=== PATIENT | female | born 1980 | race Hispanic/Latino ===

== ENCOUNTER 2018-12-23 15:54 | Inpatient (IN) | payer OTHER ==
[~2018-12-23] VITALS: Ht 167.6 cm; Wt 114.8 kg
[2018-12-23 18:02] LABS: PREGNANCY TEST, URINE NEGATIVE (NEGATIVE)
[2018-12-23 18:09] LABS: BASOPHILS # (AUTO) 0.1 (0.0-0.1); BASOPHILS % 0.6 % (0.0-1.0); EOSINOPHILS # (AUTO) 0.2 (0.0-0.4); EOSINOPHILS % 2.3 % (0.0-6.0); HEMATOCRIT 45.7 % (34.2-44.1); HEMOGLOBIN 15.3 g/dL (12.0-16.0); LYMPHOCYTES # (AUTO) 1.8 (1.0-3.2); LYMPHOCYTES % 19.8 % (18.0-39.1); MEAN CORPUSCULAR HGB CONC 33.5 g/dL (31-35); MEAN CORPUSCULAR VOLUME 92.5 fL (81-99); MONOCYTES # (AUTO) 0.9 (0.2-0.8); MONOCYTES % 9.5 % (4.4-11.3); NEUTROPHILS # (AUTO) 6.3 (2.1-6.9); NEUTROPHILS % 67.5 % (38.7-80.0); PLATELET COUNT 164 x10e3/uL (140-360); RED BLOOD COUNT 4.94 x10e6/uL (3.6-5.1); RED CELL DISTRIBUTION WIDTH 13.5 % (11.7-14.4)
[2018-12-23 18:11] LABS: BILIRUBIN,URINE 3+ (NEGATIVE); CLARITY,URINE CLOUDY (CLEAR); COLOR,URINE ORANGE (YELLOW); KETONES,URINE 1+ (NEGATIVE); LEUKOCYTE ESTERASE ,URINE TRACE (NEGATIVE); NITRITE,URINE POSITIVE (NEGATIVE); PROTEIN,URINE DIPSTICK 2+ (NEGATIVE); URINE UROBILINOGEN 1 mg/dL (0.2 - 1)
[2018-12-23 18:13] LABS: BACTERIA,URINE MANY /HPF
[2018-12-23 18:14] LABS: ALANINE AMINOTRANSFERASE 594 IU/L (0-55); ALBUMIN 2.7 g/dL (3.5-5.0); ALBUMIN/GLOBULIN RATIO 0.6 (0.8-2.0); ALKALINE PHOSPHATASE 659 IU/L (40-150); ANION GAP 12.8 mmol/L (8-16); BLOOD UREA NITROGEN 20 mg/dL (7-26); BUN/CREATININE RATIO 25 (6-25); CALCIUM 9.3 mg/dL (8.4-10.2); CARBON DIOXIDE 25 mmol/L (22-29); CHLORIDE 95 mmol/L (98-107); CREATININE, SERUM 0.81 mg/dL (0.57-1.11); EPITHELIAL CELLS,URINE MANY /LPF; EST GLOMERULAR FILTRATION RATE > 60 ML/MIN (60-); GLUCOSE 206 mg/dL (74-118); SODIUM 130 mmol/L (136-145)
[2018-12-23 18:15] LABS: AMYLASE 41 U/L (25-125); LIPASE 37 U/L (8-78)
[2018-12-23 18:19] LABS: POTASSIUM 2.8 mmol/L (3.5-5.1)
--- NOTE | 2018-12-23 19:00 | NUR ---
REPORT GIVEN TO GEN BEAN AQUACULTURE PROGRAM DIRECTOR NURSE.
[2018-12-23] MEDS ORDERED: SODIUM CHLORIDE 0.9% 1000ML 1,000 ML IV SCH (19:15)
[2018-12-23] MEDS ORDERED: POTASSIUM CHLORIDE 20MEQ/15ML UDC PO ONE (19:15)
[2018-12-23 19:47] LABS: INR 0.83; PROTHROMBIN TIME 11.9 seconds (11.9-14.5)
[2018-12-23 19:52] LABS: PARTIAL THROMBOPLASTIN TIME 28.8 seconds (23.8-35.5)
--- NOTE | 2018-12-23 21:18 | Diagnostic Imaging Report ---
EXAM: CT Abdomen and Pelvis WITH contrast INDICATION: Epigastric pain COMPARISON: None. TECHNIQUE: Abdomen and pelvis were scanned utilizing a multidetector helical scanner from the lung base to the pubic symphysis after administration of IV contrast. Coronal and sagittal reformations were obtained. Routine protocol was performed. Scan was performed when during portal venous phase. IV CONTRAST: 150 mL of Omnipaque 300 ORAL CONTRAST: Water RADIATION DOSE: Total DLP: 915 mGy*cm Estimated effective dose: (DLP x 0.015 x size factor) mSv COMPLICATIONS: None FINDINGS: LINES and TUBES: None. LOWER THORAX: Unremarkable HEPATOBILIARY: No focal hepatic lesions. No biliary ductal dilation. GALLBLADDER: Gallstones versus sludge. No wall thickening. SPLEEN: No splenomegaly. PANCREAS: No focal masses or ductal dilatation. ADRENALS: No adrenal nodules KIDNEYS/URETERS: Kidneys enhance symmetrically. No hydronephrosis. No cystic or solid mass lesions. No stones. GI TRACT: No abnormal distention, wall thickening, or evidence of bowel obstruction. Appendix is normal. PELVIC ORGANS/BLADDER: Unremarkable. LYMPH NODES: No lymphadenopathy. VESSELS: Unremarkable. PERITONEUM / RETROPERITONEUM: No free air or fluid. BONES: Unremarkable. SOFT TISSUES: Unremarkable. IMPRESSION: 1. Probable gallbladder stones versus sludge 2. No acute CT finding. Signed by: Dr. Andrew Bear M.D. on 12/23/2018 9:15 PM
[2018-12-23 21:45] VITALS: BP 136/67
[2018-12-23] MEDS ORDERED: HYDROMORPHONE 1MG/1ML INJ IV PRN (21:45)
[2018-12-23] MEDS ORDERED: IOPAMIDOL 370 MG/ML 200 ML INFUS..BTL INJ ONE (21:58)
[2018-12-23] MEDS ORDERED: SODIUM CHLORIDE 0.9% 50ML 50 ML ONE (21:58)
--- OUTSIDE RECORDS SUMMARY | 2018-12-23 22:17 | XMS REPORT ---
Author Author [facility] Address Unknown Phone Unavailable Care Team Providers Care Claims Attorney Name Role Phone Francis BANUELOS Unavailable Unavailable Problems This patient has no known problems. Allergies, Adverse Reactions, Alerts This patient has no known allergies or adverse reactions. Medications This patient has no known medications. Results Test Description Test Time Test Comments Text Results Atomic Results Result Comments CT ABDOMEN/PELVIS W 2018-12-23 20:57:00 [facility] [address] [address] Patient Name: GRIFFIN FIELDS MR #: [id number] : 1980 Age/Sex: 38/F Req #: [id number] Adm Physician: Ordered by: KIMBERLI ANDINO STRAP BUCKLER MACHINE Report #: [id number] Location: ER Room/Bed: Procedure: [id number] CT/CT ABDOMEN/PELVIS W Exam Date: 12/23/18 Exam Time: 1924 REPORT STATUS: Signed EXAM: CT Abdomen and Pelvis WITH contrast INDICATI ON: Epigastric pain COMPARISON: None. TECHNIQUE: Abdomen and pelvis were scanned utilizing a multidetector helical scanner from the lung base to the pubic symphysis after administration of IV contrast. Coronal and sagittal reformations were obtained. Routine protocol was performed. Scan was performed when during portal venous phase. IV CONTRAST: 150 mL of Omnipaque 300 ORAL CONTRAST: Water RADIATION DOSE: Total DLP: 915 mGy*cm Estimated effective dose: (DLP x 0.015 x size factor) mSv COMPLICATIONS: None FINDINGS: LINES and TUBES: None. LOWER THORAX: Unremarkable HEPATOBILIARY: No focal hepatic lesions. No biliary ductal dilation. GALLBLADDER: Gallstones versus sludge. No wall thickening. SPLEEN: No splenomegaly. PANCREAS: No focal masses or ductal dilatation. ADRENALS: No adrenal nodules KIDNEYS/URETERS: Kidneys enhance symmetrically. No hydronephrosis. No cystic or solid mass lesions. No stones. GI TRACT: No abnormal distention, wall thickening, or evidence of bowel obstruction. Appendix is normal. PELVIC ORGANS/BLADDER: Unremarkable. LYMPH NODES: No lymphadenopathy. VESSELS: Unremarkable. PERITONEUM / RETROPERITONEUM: No free air or fluid. BONES: Unremarkable. SOFT TISSUES: Unremarkable. IMPRESSION: 1. Probable gallbladder stones versus sludge 2. No acute CT finding. Signed by: Dr. Tino Carranza M.D. on 12/23/2018 9:15 PM Dictated By: TINO CARRANZA MD 14 Transcribed By: EMELY on 12/23/182114 COPY TO: KIMBERLI ANDINO NP
[2018-12-23] MEDS: PIPER-TAZ 3.375 GM 50 ML IV SCH (22:36)
[2018-12-23] MEDS ORDERED: ARMOUR THYROID120 MG PO (22:59)
[2018-12-24] VITALS (7 sets, daily range): BP systolic 132–166; BP diastolic 61–79
--- NOTE | 2018-12-24 | NUR ---
RECEIVED PATIENT FROM THE ER, COMPLAIN OF SOME DISCOMFORT, ASSESSMENT DONE, CALL LIGHT IN REACH. WILL CONTINUE TO MONITOR.
[2018-12-24] MEDS: SODIUM CHLORIDE 0.9% 1000ML 1,000 ML IV SCH ×3 (00:16→15:01)
[2018-12-24] MEDS: METRONIDAZOLE 500MG/NS 100ML 100 ML IV SCH ×4 (00:16→18:03)
[2018-12-24 05:03] LABS: BASOPHILS # (AUTO) 0.1 (0.0-0.1); BASOPHILS % 0.7 % (0.0-1.0); EOSINOPHILS # (AUTO) 0.3 (0.0-0.4); EOSINOPHILS % 3.6 % (0.0-6.0); HEMATOCRIT 40.7 % (34.2-44.1); HEMOGLOBIN 13.8 g/dL (12.0-16.0); LYMPHOCYTES # (AUTO) 1.5 (1.0-3.2); MEAN CORPUSCULAR HGB CONC 33.9 g/dL (31-35); MEAN CORPUSCULAR VOLUME 91.5 fL (81-99); MONOCYTES # (AUTO) 0.7 (0.2-0.8); MONOCYTES % 9.6 % (4.4-11.3); NEUTROPHILS # (AUTO) 4.8 (2.1-6.9); NEUTROPHILS % 65.7 % (38.7-80.0); PLATELET COUNT 136 x10e3/uL (140-360); RED BLOOD COUNT 4.45 x10e6/uL (3.6-5.1); RED CELL DISTRIBUTION WIDTH 13.4 % (11.7-14.4)
[2018-12-24 05:32] LABS: ALANINE AMINOTRANSFERASE 458 IU/L (0-55); ALBUMIN 2.1 g/dL (3.5-5.0); ALBUMIN/GLOBULIN RATIO 0.6 (0.8-2.0); ALKALINE PHOSPHATASE 571 IU/L (40-150); AMYLASE 32 U/L (25-125); BLOOD UREA NITROGEN 12 mg/dL (7-26); BUN/CREATININE RATIO 17 (6-25); CALCIUM 8.1 mg/dL (8.4-10.2); CARBON DIOXIDE 23 mmol/L (22-29); CHLORIDE 101 mmol/L (98-107); CREATININE, SERUM 0.69 mg/dL (0.57-1.11); EST GLOMERULAR FILTRATION RATE > 60 ML/MIN (60-); GLUCOSE 139 mg/dL (74-118); LIPASE 25 U/L (8-78); SODIUM 132 mmol/L (136-145)
[2018-12-24] MEDS: PIPER-TAZ 3.375 GM 50 ML IV SCH ×3 (06:18→22:00)
--- NOTE | 2018-12-24 07:14 | NUR ---
REPORT GIVEN TO AM NURSE, ROUNDS DONE. IV INFUSING, NO DISTRESS NOTED.
--- NOTE | 2018-12-24 07:16 | NUR ---
PATIENT ASSISTED TO THE RESTROOM AND BACK TO BED. IV FLUID INFUSING ORDERED. PSORIASIS ALL OVER THE BODY, ESCHAR TO RIGHT GREAT TOE, SOME EDEMA TO LEFT FOOT. DENIED PAIN AT THIS TIME. BED IN LOWER POSITION, CALL LIGHT AT REACH.
--- NOTE | 2018-12-24 10:02 | NUR ---
PATIENT OFF UNIT TO RADIOLOGY
--- NOTE | 2018-12-24 11:05 | NUR ---
PATIENT BACK TO UNIT FROM RADIOLOGY.
--- NOTE | 2018-12-24 11:27 | NUR ---
SOCIAL WORK INITIAL ASSESSMENT Musculoskeletal Physician to bedside to discuss plan of care with patient/family. CM/SW role and care transitions discussed. Anticipated discharge plan discussed along with duration of care. CM/SW discussed patients right to make decisions in care. CM/SW work hours given. Patient lives: WITH FAMILY IN HOME Admit/Transfer: VIA ED DUE TO ABNORMAL LABS FROM PCP POA/Emergency contact: WENDI [phone] Current/Previous Home Health: NONE PCP/Follow-up Care: LEO Current/Previous DME: NONE Other Services: NONE Employment Status: [employer] Areas of Concerns: NONE Referral Needs: NONE Education Needs: NONE IMM/ROWLEY given and signed (if applicable): NONE Goal for discharge: RETURN HOME INDEPENDENTLY CM/SW left business card at the bedside with contact information. Name and number was also written on the patients whiteboard. Patient verbalized understanding of discussion. CM will follow-up with ongoing discharge and transition of care needs.
--- NOTE | 2018-12-24 12:41 | Diagnostic Imaging Report ---
EXAM: MRI of the abdomen without contrast with MRCP INDICATION: Abdominal pain. Cholecystitis. Concern for choledocholithiasis. COMPARISON: Correlation with CT abdomen dated 12/23/2018.. TECHNIQUE: Multiplanar and multisequence imaging was performed of the abdomen. T1 and T2-weighted images were obtained with and without contrast. MRCP sequences were also obtained. Discussion: Examination somewhat limited due to image limitation by breathing motion artifact. LOWER THORAX: Unremarkable. HEPATOBILIARY: The spleen is enlarged measuring 24.8 cm in craniocaudal dimension. Mild decrease in signal intensity of the hepatic parenchyma on the T1-weighted out of phase scans suggestive of mild steatosis. No focal hepatic lesions. No biliary ductal dilation. The common bile duct measures up to 5.0 mm in diameter, however, there is subtle T2 hypointense foci within the distal CBD as seen on image 31 series 7, concerning for a calculus. GALLBLADDER: Decompressed. There is subtle T2 hypointense foci within the gallbladder lumen, consistent with calculi. SPLEEN: The spleen is mildly enlarged measuring 15.2 cm in craniocaudal dimension. PANCREAS: No focal masses or ductal dilatation. ADRENALS: No adrenal nodules KIDNEYS/URETERS: Kidneys enhance symmetrically. No hydronephrosis. No cystic or solid mass lesions. Mild bilateral perinephric stranding. History injury GI TRACT: No abnormal distention, wall thickening, or evidence of bowel obstruction. Appendix is normal. LYMPH NODES: No lymphadenopathy. VESSELS: Unremarkable. PERITONEUM / RETROPERITONEUM: No free air or fluid. BONES: Unremarkable. SOFT TISSUES: Unremarkable. Impression: 1. Cholelithiasis with a contracted gallbladder. 2. Small hypointense filling defect within the distal CBD concerning for calculus, however, without significant bile duct dilatation at this time. 3. Hepatomegaly and hepatic steatosis. Signed by: Dr. Jose Rafael Dockery M.D. on 12/24/2018 12:38 PM
[2018-12-24] MEDS ORDERED: POTASSIUM CHLORIDE 20 MEQ TAB CR PO NR ×2 (15:30→17:00)
--- NOTE | 2018-12-24 16:22 | NUR ---
SPOKE WITH MD REGARDING ABNORMAL LAB RESULT, NEW ORDER RECEIVED AND IMPLEMENTED. PATIENT IN BED RESTING WITH NO RESPIRATORY DISTRESS. CALL LIGHT AT REACH.
[2018-12-24] MEDS: HYDROMORPHONE 2MG/ML 2 MG/ML ML IV PRN (22:30)
--- NOTE | 2018-12-24 22:30 | NUR ---
Patient laying in bed with HOB slightly elevated. AAO x 4. No sob noted. No acute distress noted. Patient reports pain to abd at 7/10, PRN med administered as ordered per MD. Patient in stable condition at this time and will continue to monitor.
[2018-12-25] VITALS (9 sets, daily range): BP systolic 121–177; BP diastolic 59–83
[2018-12-25] MEDS: METRONIDAZOLE 500MG/NS 100ML 100 ML IV SCH ×5 (01:00→23:39)
[2018-12-25] MEDS: PIPER-TAZ 3.375 GM 50 ML IV SCH ×3 (06:00→21:16)
[2018-12-25 06:52] LABS: BASOPHILS % 0.6 % (0.0-1.0); EOSINOPHILS # (AUTO) 0.2 (0.0-0.4); EOSINOPHILS % 3.2 % (0.0-6.0); HEMATOCRIT 42.2 % (34.2-44.1); HEMOGLOBIN 13.8 g/dL (12.0-16.0); LYMPHOCYTES # (AUTO) 1.2 (1.0-3.2); LYMPHOCYTES % 16.9 % (18.0-39.1); MEAN CORPUSCULAR HEMOGLOBIN 30.9 pg (28-32); MEAN CORPUSCULAR HGB CONC 32.7 g/dL (31-35); MEAN CORPUSCULAR VOLUME 94.4 fL (81-99); MONOCYTES # (AUTO) 0.6 (0.2-0.8); MONOCYTES % 8.9 % (4.4-11.3); NEUTROPHILS # (AUTO) 4.8 (2.1-6.9); NEUTROPHILS % 69.8 % (38.7-80.0); PLATELET COUNT 157 x10e3/uL (140-360); RED BLOOD COUNT 4.47 x10e6/uL (3.6-5.1); RED CELL DISTRIBUTION WIDTH 13.7 % (11.7-14.4)
--- NOTE | 2018-12-25 07:10 | NUR ---
PATIENT IN BED RESTING WITH NO S/S OF DISCOMFORT. IV FLUID DECREASED. BED IN LOWER POSITION, CALL LIGHT AT REACH.
--- NOTE | 2018-12-25 07:15 | NUR ---
PATIENT IN BED RESTING WITH HEAD OF BED ELEVATED, NO RESPIRATORY DISTRESS OBSERVED. HIGH FLOW O2 IN PLACE. DENIED PAIN. BED IN LOWER POSITION, CALL LIGHT AT REACH. FAMILY AT BED SIDE. Addendum: 12/25/18 at 0737 by Corinne Michaels RN WRONG PATIENT
[2018-12-25 07:56] LABS: ALANINE AMINOTRANSFERASE 425 IU/L (0-55); ALBUMIN 2.2 g/dL (3.5-5.0); ALBUMIN/GLOBULIN RATIO 0.6 (0.8-2.0); ALKALINE PHOSPHATASE 567 IU/L (40-150); ANION GAP 10.8 mmol/L (8-16); BLOOD UREA NITROGEN 8 mg/dL (7-26); BUN/CREATININE RATIO 12 (6-25); CALCIUM 8.2 mg/dL (8.4-10.2); CARBON DIOXIDE 25 mmol/L (22-29); CHLORIDE 102 mmol/L (98-107); CREATININE, SERUM 0.68 mg/dL (0.57-1.11); EST GLOMERULAR FILTRATION RATE > 60 ML/MIN (60-); GLUCOSE 173 mg/dL (74-118); POTASSIUM 3.8 mmol/L (3.5-5.1); SODIUM 134 mmol/L (136-145)
[2018-12-25] MEDS: SODIUM CHLORIDE 0.9% 1000ML 1,000 ML IV SCH ×2 (09:00→23:39)
--- NOTE | 2018-12-25 14:59 | NUR ---
PATIENT OUT OF BED TO CHAIR TALKING TO FAMILY MEMBER VISITING. CALL LIGHT AT REACH.
--- NOTE | 2018-12-25 19:23 | NUR ---
PT IS RESTING IN BED. NO RESPIRATORY DISTRESS NOTED. BED IN THE LOWEST POSITION, LOCKED, AND CALL LIGHT WITHIN REACH. WILL CONTINUE TO MONITOR.
[2018-12-25] MEDS: ONDANSETRON HCL INJ 2MG/ML 2ML 2 MG/ML VIAL IV PRN (19:30)
[2018-12-25] MEDS: HYDROMORPHONE 2MG/ML 2 MG/ML ML IV PRN (20:35)
[2018-12-26] VITALS (9 sets, daily range): BP systolic 132–175; BP diastolic 69–82
[2018-12-26] MEDS: PIPER-TAZ 3.375 GM 50 ML IV SCH ×3 (05:06→22:50)
[2018-12-26] MEDS: METRONIDAZOLE 500MG/NS 100ML 100 ML IV SCH ×3 (05:43→18:33)
[2018-12-26 06:44] LABS: BASOPHILS # (AUTO) 0.1 (0.0-0.1); BASOPHILS % 0.7 % (0.0-1.0); EOSINOPHILS # (AUTO) 0.2 (0.0-0.4); EOSINOPHILS % 2.9 % (0.0-6.0); HEMATOCRIT 39.7 % (34.2-44.1); HEMOGLOBIN 13.3 g/dL (12.0-16.0); LYMPHOCYTES # (AUTO) 0.9 (1.0-3.2); MEAN CORPUSCULAR HEMOGLOBIN 31.2 pg (28-32); MEAN CORPUSCULAR HGB CONC 33.5 g/dL (31-35); MEAN CORPUSCULAR VOLUME 93.2 fL (81-99); MONOCYTES # (AUTO) 0.8 (0.2-0.8); MONOCYTES % 11.9 % (4.4-11.3); NEUTROPHILS # (AUTO) 4.8 (2.1-6.9); NEUTROPHILS % 71.1 % (38.7-80.0); PLATELET COUNT 153 x10e3/uL (140-360); RED BLOOD COUNT 4.26 x10e6/uL (3.6-5.1); RED CELL DISTRIBUTION WIDTH 13.6 % (11.7-14.4)
[2018-12-26 06:55] LABS: ALANINE AMINOTRANSFERASE 386 IU/L (0-55); ALBUMIN/GLOBULIN RATIO 0.5 (0.8-2.0); ALKALINE PHOSPHATASE 617 IU/L (40-150); ANION GAP 10.4 mmol/L (8-16); BLOOD UREA NITROGEN 6 mg/dL (7-26); BUN/CREATININE RATIO 8 (6-25); CALCIUM 8.1 mg/dL (8.4-10.2); CARBON DIOXIDE 25 mmol/L (22-29); CHLORIDE 102 mmol/L (98-107); CREATININE, SERUM 0.71 mg/dL (0.57-1.11); EST GLOMERULAR FILTRATION RATE > 60 ML/MIN (60-); GLUCOSE 174 mg/dL (74-118); POTASSIUM 3.4 mmol/L (3.5-5.1); SODIUM 134 mmol/L (136-145)
--- NOTE | 2018-12-26 07:30 | NUR ---
REC'D PT AAOX3, PT NOT EXPERIENCING S/S OF DISTRESS, PT C/O NAUSEA AND PAIN. PROVIDED MEDICATION FOR NAUSEA AND PAIN. PATIENT TOLERATED WELL. SIDE RAILS UP X2, BED IN LOWEST POSITION, AND CALL ZURITA WITHIN REACH.
--- NOTE | 2018-12-26 10:45 | NUR ---
ASSISTED PT TO BATHROOM FOR SHOWERING. NO S/S OF DISTRESS NOTED. EDUCATED PT THAT IF SHE NEEDS ASSISTANCE IN THE SHOWER TO PULL ON RED CORD.
[2018-12-26] MEDS: HYDROMORPHONE 2MG/ML 2 MG/ML ML IV PRN ×3 (11:12→23:20)
[2018-12-26] MEDS: ONDANSETRON HCL INJ 2MG/ML 2ML 2 MG/ML VIAL IV PRN (11:12)
--- NOTE | 2018-12-26 11:55 | NUR ---
PT BACK IN BED FROM SHOWERING. NO S/S OF DISTRESS AND CONNECTED IV FLUIDS BACK TO IV PORT RUNNING AT 75 ML/HR. PATIENT TOLERATED WELL.
[2018-12-26] MEDS: SODIUM CHLORIDE 0.9% 1000ML 1,000 ML IV SCH (11:58)
[2018-12-26] MEDS ORDERED: IOPAMIDOL 300MG/ML 50ML INFUS..BTL IV ONE ×2 (13:06→15:14)
[2018-12-26] MEDS ORDERED: INDOMETHACIN 50 MG SUPP.RECT RC ONE (13:06)
--- NOTE | 2018-12-26 13:22 | NUR ---
PT TAKEN FOR ERCP PROCEDURE. VITAL SIGNS STABLE.
--- NOTE | 2018-12-26 16:57 | Operative Report ---
DATE OF PROCEDURE: 12/26/2018 SURGEON: Taras Cesar MD PROCEDURES: Esophagogastroduodenoscopy with biopsies and ERCP with ERS balloon sweep and biliary stent insertion. INDICATIONS FOR EGD AND ERCP: Upper abdominal pain, nausea. Choledocholithiasis on MRCP. MEDICATIONS: The patient was done under MAC, please see anesthesiologist's note. PROCEDURE IN DETAIL: With the patient in the left lateral decubitus position, after induction of general endotracheal anesthesia, the flexible fiberoptic Olympus gastroscope was introduced into the esophagus under direct visualization without any difficulty. There were some patchy erythema noted in distal esophagus. A minute tongue of velvety red mucosa extending proximally from the GE junction was biopsied to rule out Wang. The scope was then advanced with ease into the stomach. Mucosa overlying the antrum and the body revealed some diffuse erythema and moderate edema and biopsies were obtained, sent to stain for H pylori. The pylorus was of normal contour and shape, it was intubated with ease and the scope was advanced all the way to the second portion of the duodenum. The mucosa overlying the proximal second portion and duodenal bulb grossly appeared to be within normal limits. The scope was then withdrawn back into the stomach and retroflexed, mucosa overlying the fundus and cardia appeared to be within normal limits. The scope was then straightened out. The stomach was decompressed, scope was subsequently withdrawn. The patient tolerated the procedure well. IMPRESSION: 1. Distal esophagitis. 2. Rule out Wang. 3. Gastritis, biopsied and biopsies sent to stain for Helicobacter pylori. PLAN: Follow up histology. Initiate Protonix 40 mg one p.o. q.a.m. a.c. PROCEDURE IN DETAIL: The side-viewing Olympus fiberoptic scope was then introduced into the esophagus with ease and advanced all the way to the second portion of the duodenum. The ampulla was identified. It was cannulated with ease and a cholangiogram was carried out, which was followed by endoscopic retrograde sphincterotomy. Balloon sweep x3 was then carried out with removal of several stones from the common bile duct. This was followed with an insertion of a size 10/5 biliary stent with excellent biliary drainage noted. The scope was subsequently withdrawn. The patient tolerated the procedure well. IMPRESSION: 1. Ampulla within normal limits, cannulated with ease and a cholangiogram was carried out. 2. Endoscopic retrograde sphincterotomy was done followed by balloon sweep x3 with removal of several stones. 3. CBD stent size 10/5 was inserted with good bile drainage documented. The patient tolerated the procedure well. The patient is cleared for laparoscopic cholecystectomy. Taras Cesar MD [facility] [place]/MOD[place] /[id number] cc: Tyler Hill MD
--- NOTE | 2018-12-26 17:25 | NUR ---
PT RELAXING IN BED WITH EYES OPENED WAITING ON .
[2018-12-26] MEDS ORDERED: EPHEDRINE SULFATE INJ 50 MG/10 ML SYR ONE (17:45)
[2018-12-26] MEDS ORDERED: DEXAMETHASONE SOD PHOS INJ 4 MG/ML VIAL ONE (17:45)
[2018-12-26] MEDS ORDERED: PROPOFOL IV EMULSION 10 MG/ML 50 ML VIAL ONE (17:45)
[2018-12-26] MEDS ORDERED: GLUCAGON FOR INJ 1 MG VIAL ONE (17:45)
[2018-12-26] MEDS ORDERED: ROCURONIUM BROMIDE 10 MG/ML 5ML VIAL ONE (17:45)
[2018-12-26] MEDS ORDERED: NEOSTIGMINE 5 MG/5ML SYR ONE (17:45)
[2018-12-26] MEDS ORDERED: GLYCOPYRROLATE INJ 1MG/ 5 ML SYR ONE (17:45)
[2018-12-26] MEDS ORDERED: SEVOFLURANE INHAL SOLN 250 ML PEN BTL ONE (17:45)
[2018-12-26] MEDS ORDERED: ONDANSETRON HCL INJ 2MG/ML 2ML 2 MG/ML VIAL ONE (17:45)
[2018-12-26] MEDS ORDERED: SUCCINYLCHOLINE 200 MG/10 ML SYR ONE (17:45)
[2018-12-26] MEDS ORDERED: LIDOCAINE HCL 2% LOCAL INJ 5 ML SDV VIAL INJ ONE (17:45)
[2018-12-26] MEDS ORDERED: MIDAZOLAM HCL 2 MG/2 ML VIAL ONE (18:43)
[2018-12-26] MEDS ORDERED: KETAMINE HCL INJ 50 MG/ML 10 ML VIAL ONE (18:43)
[2018-12-26] MEDS ORDERED: FENTANYL CITRATE/PF 100MCG/2 ML INJ ONE (18:43)
--- NOTE | 2018-12-26 19:05 | NUR ---
BS rounds completed with morning nurse. Pt alert to name. Lying in bed HOB 60 degrees. Family at bedside. Denies mild throat pain, refuses pain med. Call mcelroy within reach. Bed low and locked. Will continue to monitor.
--- NOTE | 2018-12-26 20:05 | NUR ---
Consent signed for Laparoscopic Cholecystectomy. Pt verbalized understanding of NPO status after midnight. Pt voiced no concerns. Will continue to monitor.
--- NOTE | 2018-12-26 21:43 | Diagnostic Imaging Report ---
EXAM: Fluoroscopy for ERCP INDICATION: Abdominal Pain. Elevated enzymes. Evaluate for choledocholithiasis ERCP. Gallstone in the bile duct. COMPARISON: MRCP 12/25/2015. CT abdomen and pelvis 12/23/2018. TECHNIQUE: ERCP was performed by Dr. PATRICE ARMENTA MD Radiologist was not present at the time of procedure. RADIATION DOSE: Fluoroscopy Time: 1 min 45 seconds Dose Area Product: 1351.39 Gycm2 Air Kerma: 38.54 mGy Air Kerma (AK) value has been reviewed. It is below the limits set by the Radiation Protocol Committee (RPC) committee. Number of images made available for evaluation: 13 FINDINGS: Filling defect identified in the distal common bile duct. Balloon sweeping was performed. No residual filling defect. A common bile duct stent is placed. IMPRESSION: 1. Interval removal of a common bile duct stone. 2. Placement of a common bile duct stent. Signed by: Dr. Joseph Johnson M.D. on 12/26/2018 9:39 PM
[2018-12-27] VITALS (8 sets, daily range): BP systolic 124–172; BP diastolic 71–78
[2018-12-27] MEDS: METRONIDAZOLE 500MG/NS 100ML 100 ML IV SCH ×5 (01:00→23:51)
[2018-12-27] MEDS: SODIUM CHLORIDE 0.9% 1000ML 1,000 ML IV SCH ×3 (02:15→22:23)
[2018-12-27] MEDS: PIPER-TAZ 3.375 GM 50 ML IV SCH ×3 (05:57→22:23)
[2018-12-27 06:20] LABS: BASOPHILS % 0.4 % (0.0-1.0); EOSINOPHILS % 0.1 % (0.0-6.0); HEMATOCRIT 40.8 % (34.2-44.1); HEMOGLOBIN 13.3 g/dL (12.0-16.0); LYMPHOCYTES # (AUTO) 0.9 (1.0-3.2); LYMPHOCYTES % 11.2 % (18.0-39.1); MEAN CORPUSCULAR HEMOGLOBIN 30.7 pg (28-32); MEAN CORPUSCULAR HGB CONC 32.6 g/dL (31-35); MEAN CORPUSCULAR VOLUME 94.2 fL (81-99); MONOCYTES # (AUTO) 0.3 (0.2-0.8); MONOCYTES % 3.8 % (4.4-11.3); NEUTROPHILS # (AUTO) 6.9 (2.1-6.9); NEUTROPHILS % 83.8 % (38.7-80.0); PLATELET COUNT 193 x10e3/uL (140-360); RED BLOOD COUNT 4.33 x10e6/uL (3.6-5.1); RED CELL DISTRIBUTION WIDTH 13.6 % (11.7-14.4)
[2018-12-27 06:58] LABS: ALANINE AMINOTRANSFERASE 287 IU/L (0-55); ALBUMIN 2.1 g/dL (3.5-5.0); ALBUMIN/GLOBULIN RATIO 0.5 (0.8-2.0); ALKALINE PHOSPHATASE 552 IU/L (40-150); BLOOD UREA NITROGEN 9 mg/dL (7-26); BUN/CREATININE RATIO 12 (6-25); CALCIUM 8.1 mg/dL (8.4-10.2); CARBON DIOXIDE 26 mmol/L (22-29); CHLORIDE 99 mmol/L (98-107); CREATININE, SERUM 0.74 mg/dL (0.57-1.11); EST GLOMERULAR FILTRATION RATE > 60 ML/MIN (60-); GLUCOSE 179 mg/dL (74-118); SODIUM 131 mmol/L (136-145)
--- NOTE | 2018-12-27 07:30 | NUR ---
REC'D PATIENT AAOX3, RESTING WITH EYES OPENED, PLEASANT, NO S/S OF DISTRESS.
[2018-12-27] MEDS: ONDANSETRON HCL INJ 2MG/ML 2ML 2 MG/ML VIAL IV PRN (08:03)
--- NOTE | 2018-12-27 11:30 | NUR ---
PATIENT BACK IN BED FROM SHOWERING, NO S/S OF DISTRESS, BED IN LOWEST POSITION, SIDE RAILS UP X2, AND CALL LIGHT WITHIN REACH.
--- NOTE | 2018-12-27 13:30 | NUR ---
PT. RESTING QUIETLY WITH EYES OPENED, SON AT BEDSIDE, CHANGED PT BRIEF AND CLEANED SOILED BED. SIDE RAILS UP X3, BED IN LOWEST POSITION, AND CALL LIGHT WITHIN REACH. PT TO EVALUATE.
--- NOTE | 2018-12-27 14:00 | NUR ---
PATIENT IN BED WITH FAMILY AT BEDSIDE. BED IN LOWEST POSITION, SIDE RAILS UP X2, AND CALL LIGHT WITHIN REACH.
--- NOTE | 2018-12-27 14:45 | NUR ---
PT TAKE FOR SURGERY. CONSENT SIGNED.
--- NOTE | 2018-12-27 15:45 | NUR ---
PT SITTING ON THE COUCH WITH HER AUNT. NO S/S OF DISTRESS.
[2018-12-27] MEDS ORDERED: BUPIVACAINE 0.25%/EPI 30ML SDV INJ ONE (17:03)
[2018-12-27] MEDS ORDERED: DEXAMETHASONE SOD PHOS INJ 4 MG/ML VIAL ONE (18:27)
[2018-12-27] MEDS ORDERED: ONDANSETRON HCL INJ 2MG/ML 2ML 2 MG/ML VIAL ONE (18:27)
[2018-12-27] MEDS ORDERED: PROPOFOL IV EMULSION 10 MG/ML 20 ML VIAL ONE (18:27)
[2018-12-27] MEDS ORDERED: KETOROLAC TROMETHAMINE 30 MG/ML VIAL ONE (18:27)
[2018-12-27] MEDS ORDERED: SEVOFLURANE INHAL SOLN 250 ML PEN BTL ONE (18:27)
[2018-12-27] MEDS ORDERED: SUCCINYLCHOLINE 200 MG/10 ML SYR ONE (18:27)
[2018-12-27] MEDS ORDERED: LIDOCAINE HCL 2% LOCAL INJ 5 ML SDV VIAL INJ ONE (18:27)
[2018-12-27] MEDS ORDERED: ROCURONIUM BROMIDE 10 MG/ML 5ML VIAL ONE (18:27)
[2018-12-27] MEDS ORDERED: FENTANYL CITRATE/PF 100MCG/2 ML INJ ONE (19:03)
[2018-12-27] MEDS ORDERED: MIDAZOLAM HCL 2 MG/2 ML VIAL ONE (19:03)
--- NOTE | 2018-12-27 19:15 | NUR ---
REPORT RECEIVED, PT STILL IN SURGERY AT THIS TIME.
[2018-12-27] MEDS ORDERED: HYDROMORPHONE 2MG/ML 2 MG/ML ML ONE (20:08)
--- NOTE | 2018-12-27 20:34 | NUR ---
RECEIVED REPORT FROM PACU FOR PT RETURNING TO ROOM 285.
--- NOTE | 2018-12-27 20:44 | NUR ---
RECEIVED PT BY STRETCHER TO ROOM 285 POST LAPAROSCOPIC CHOLECYSTECTOMY. PT IS AAOX3, RR EVEN AND NON-LABORED, ON RA. X5 TROCAR SITES NOTED TO ANTERIOR ABD. PT ABLE TO TRANSFER SELF TO HOSPITAL BED. LEFT PT LAYING SEMI FOWLERS IN BED, BED IN LOW LOCKED POSITION, SIDE RAILS UPX2, CALL LIGHT AND PHONE WITHIN REACH. FAMILY AT BEDSIDE.
[2018-12-27] MEDS: HYDROCODONE/APAP 7.5MG-325MG 1 EA TAB PO PRN (21:06)
[2018-12-28] VITALS (7 sets, daily range): BP systolic 128–169; BP diastolic 62–81
[2018-12-28] MEDS: SODIUM CHLORIDE 0.9% 1000ML 1,000 ML IV SCH ×3 (01:55→15:53)
[2018-12-28] MEDS: HYDROCODONE/APAP 7.5MG-325MG 1 EA TAB PO PRN ×2 (01:57→13:55)
--- NOTE | 2018-12-28 03:11 | Operative Report ---
DATE OF PROCEDURE: 12/27/2018 SURGEON: Tyler Hill MD PREOPERATIVE DIAGNOSES: Cholecystitis and cholelithiasis. POSTOPERATIVE DIAGNOSES: Cholecystitis and cholelithiasis. OPERATION PERFORMED: Laparoscopic cholecystectomy. EMERY WHEEL MOLDER: Dr. Duke Hill. ANESTHESIA: General endotracheal. COMPLICATIONS: None. ESTIMATED BLOOD LOSS: Minimal. DESCRIPTION OF PROCEDURE: With the patient lying in bed in the supine position under good general endotracheal anesthesia, the abdomen was prepped with Betadine solution and draped in the usual manner. A Veress needle was introduced into the umbilicus and pneumoperitoneum was established without any difficulty. An 11 mm trocar was placed into the umbilicus and a 10 mm videolaparoscope was placed into the intraabdominal cavity. Under direct vision, three 5 mm trocars were placed in the right subcostal region, and an extra 5 mm trocar was placed in the left upper abdomen. Video laparoscopy at this point revealed the liver that had significant congestion secondary to the common duct stones in the liver obstruction that she has had. Also, there was some early fatty infiltration changes present. The gallbladder was chock-full of stones. There was a tremendous amount of inflammatory reaction all the way up and down the luna hepatis with a lot of fibrosis representing a long-standing case of chronic cholecystitis and cholelithiasis. The rest of the abdominal exploration was within normal limits. All of the adhesions to the gallbladder were then slowly and carefully taken down. The neck of the gallbladder was then slowly and carefully exposed. There was a lot of fibrosis around the gallbladder and there was a structure going toward the luna hepatis which was very hard, which appeared to be a long wide cystic duct chock-full of stones. We decided to find the gallbladder at its neck in the liver bed, and then slowly and carefully dissected the gallbladder distally from here, all the way to the cystic duct common duct junction. The cystic artery was identified and doubly clipped and divided. Indeed, the large structure that we saw was the cystic duct that was full of stones all the way down to its junction with the common duct. The cystic duct was actually opened so that we could remove the stones as it would be impossible to try to ligate the cystic duct without taking the stones out first, the cystic duct was opened and the stones were removed. The patient already had a stent in the common duct from the ERCP that she had done yesterday. Once this was done and all the stones were removed out of the cystic duct, the cystic duct was then closed with 2-0 PDS Endoloop, this gives a satisfactory closure. The gallbladder was then taken off the liver bed using the cautery scissors, placed in a pouch and removed through the umbilicus. Video laparoscopy was then again carried out. The liver bed was found to be perfectly dry. All the excess fluid was aspirated. The pneumoperitoneum was evacuated and all the trocars were removed under direct vision. The midline fascia at the umbilicus was then closed with a [id number] of 0 Vicryl. All layers were infiltrated on the way out with solution of 0.25% Marcaine. Subcutaneous tissue was approximated with 3-0 Vicryl and the skin was closed with subcuticular 5-0 Vicryl. Benzoin, Steri-Strips, and Band-Aids were applied. The sponge, lap, and needle count was correct. The patient tolerated the procedure well and returned to the recovery room in stable condition. MD DANIA Maier/CHE /[id number]
[2018-12-28] MEDS: PIPER-TAZ 3.375 GM 50 ML IV SCH ×2 (06:05→14:00)
[2018-12-28 06:13] LABS: BASOPHILS % 0.2 % (0.0-1.0); EOSINOPHILS % 0.1 % (0.0-6.0); HEMATOCRIT 37.7 % (34.2-44.1); HEMOGLOBIN 12.5 g/dL (12.0-16.0); LYMPHOCYTES # (AUTO) 1.1 (1.0-3.2); LYMPHOCYTES % 11.7 % (18.0-39.1); MEAN CORPUSCULAR HEMOGLOBIN 31.5 pg (28-32); MEAN CORPUSCULAR HGB CONC 33.2 g/dL (31-35); MONOCYTES # (AUTO) 0.5 (0.2-0.8); MONOCYTES % 5.1 % (4.4-11.3); NEUTROPHILS # (AUTO) 7.7 (2.1-6.9); NEUTROPHILS % 82.4 % (38.7-80.0); PLATELET COUNT 200 x10e3/uL (140-360); RED BLOOD COUNT 3.97 x10e6/uL (3.6-5.1); RED CELL DISTRIBUTION WIDTH 13.8 % (11.7-14.4)
[2018-12-28 06:31] LABS: ALANINE AMINOTRANSFERASE 198 IU/L (0-55); ALBUMIN 2.1 g/dL (3.5-5.0); ALBUMIN/GLOBULIN RATIO 0.6 (0.8-2.0); ALKALINE PHOSPHATASE 490 IU/L (40-150); AMYLASE 29 U/L (25-125); ANION GAP 11.7 mmol/L (8-16); BLOOD UREA NITROGEN 12 mg/dL (7-26); BUN/CREATININE RATIO 18 (6-25); CALCIUM 7.8 mg/dL (8.4-10.2); CARBON DIOXIDE 25 mmol/L (22-29); CHLORIDE 100 mmol/L (98-107); CREATININE, SERUM 0.65 mg/dL (0.57-1.11); EST GLOMERULAR FILTRATION RATE > 60 ML/MIN (60-); GLUCOSE 186 mg/dL (74-118); POTASSIUM 3.7 mmol/L (3.5-5.1); SODIUM 133 mmol/L (136-145)
[2018-12-28] MEDS: METRONIDAZOLE 500MG/NS 100ML 100 ML IV SCH ×3 (06:39→18:01)
--- NOTE | 2018-12-28 06:46 | NUR ---
PAGE PLACED FOR MD Juan Luis LUNDY CONCERNING PT REQUEST FOR THROID MEDICATION. WAITING FOR CALLBACK.
--- NOTE | 2018-12-28 07:21 | NUR ---
PATIENT SITTING UP IN BED WATCHING TV, NO S/S OF DISCOMFORT NOTED. 5 TROCAR SITES TO ABDOMEN, DRY AND INTACT. BED IN LOWER POSITION, CALL LIGHT AT REACH.
[2018-12-28] MEDS ORDERED: THYROID PORK 120 MG PO SCH (09:00)
[2018-12-28] MEDS ORDERED: THYROID 60 MG TAB PO SCH (09:00)
[2018-12-28] MEDS ORDERED: ONDANSETRON HCL 4 MG ORAL DISINTEGRATING TAB PO PRN (10:30)
--- NOTE | 2018-12-28 16:10 | NUR ---
PATIENT SITTING AT BED SIDE TALKING TO FAMILY MEMBER VISITING, NO COMPLAIN VOICED. CALL LIGHT AT REACH.
--- NOTE | 2018-12-28 19:26 | NUR ---
PT IS RESTING IN BED. NO RESPIRATORY DISTRESS NOTED. BED IN THE LOWEST POSITION, LOCKED, AND CALL LIGHT WITHIN REACH. WILL CONTINUE TO MONITOR.
--- NOTE | 2018-12-28 20:24 | NUR ---
PT WHEELED OF THE UNIT VIA WHEELCHAIR WITH ALL OF HER BELONGS AT 2023. NO DISTRESS NOTED. IV REMOVED WITH TIP INTACT. DISCHARGE INSTRUCTION AND FOLLOW-UP CARE DISCUSS WITH THE PT. PT ACKNOWLEDGED UNDERSTANDING.
== END 2018-12-28 20:35 | disposition home or self-care (01) | DRG 418 ==
LOC: ER 15:54 → ERHOLD 22:15 → MED/SURG3 23:14
PROVIDERS: ADMIT Surgery; ATTEND Surgery
PROC: 0DB68ZX Excision of Stomach, Via Natural or Artificial Opening Endoscopic, Diagnostic (ICD-10-PCS; 2018-12-26)
PROC: 0FC98ZZ Extirpation of Matter from Common Bile Duct, Via Natural or Artificial Opening Endoscopic (ICD-10-PCS; 2018-12-26)
PROC: 0F798DZ Dilation of Common Bile Duct with Intraluminal Device, Via Natural or Artificial Opening Endoscopic (ICD-10-PCS; 2018-12-26)
PROC: 0DB48ZX Excision of Esophagogastric Junction, Via Natural or Artificial Opening Endoscopic, Diagnostic (ICD-10-PCS; 2018-12-26 14:28)
PROC: 0FT44ZZ Resection of Gallbladder, Percutaneous Endoscopic Approach (ICD-10-PCS; principal; 2018-12-27 14:30)
DX: K80.67 Calculus of gallbladder and bile duct with acute and chronic cholecystitis with obstruction (principal); E87.1 Hypo-osmolality and hyponatremia; Z68.41 Body mass index [BMI] 40.0-44.9, adult; K80.33 Calculus of bile duct with acute cholangitis with obstruction; E87.6 Hypokalemia; Z88.8 Allergy status to other drugs, medicaments and biological substances; Z72.0 Tobacco use; L40.9 Psoriasis, unspecified; E89.0 Postprocedural hypothyroidism; E66.9 Obesity, unspecified; K20.9 Esophagitis, unspecified; K29.70 Gastritis, unspecified, without bleeding; K22.70 Barrett's esophagus without dysplasia
CPT/HCPCS: 36415; 43260; 43274; 74177; 74181; 74328; 80053; 81001; 81025; 82150; 83690; 83735; 85025; 85610; 85730; 88304; 88305; 88312; 93005; 99284; C1766; C2625; J1100; J1610; J1885; J2001; J2250; J2405; J2543; J7030; Q9967

== ENCOUNTER → 2019-04-25 | Outpatient (CLI) | payer OTHER ==
[~2019-04-25] MED LIST: ARMOUR THYROID120 MG PO; [UNRECOGNIZED DRUG - OTHER] INJ
--- NOTE | 2019-04-25 10:24 | Diagnostic Imaging Report ---
Exam: KUB - 2 views Clinical History: Biliary stent. Comparison: ERCP of 12/26/2018, CT abdomen and pelvis of 12/23/2018 Findings: Radiopaque internal biliary stent projects over the spine, likely traversing the distal common bile duct. Status post cholecystectomy. Nonobstructive bowel gas pattern. No free air. Mild degenerative changes of both hip joints right greater than left. No suspicious calcifications. Impression: Radiopaque biliary stent projects over the spine likely traversing the distal common bile duct. Signed by: Dionte Antonio MD on 04/25/2019 10:21 AM
== END ==
LOC: RAD 08:50
PROVIDERS: ATTEND Internal Medicine Gastroenterology
DX: K83.8 Other specified diseases of biliary tract (principal)
CPT/HCPCS: 74018

== ENCOUNTER → 2019-05-31 | Day surgery (SDC) | payer OTHER ==
[~2019-05-31] MED LIST changes: +DEXAMETHASONE SOD PHOS INJ 4 MG/ML VIAL ONE; +FENTANYL CITRATE/PF 100MCG/2 ML INJ ONE; +INDOMETHACIN 50 MG SUPP.RECT RC ONE; +IOPAMIDOL 610MG/1ML 300 MG/ML VIAL IV ONE; +LIDOCAINE HCL 2% LOCAL INJ 5 ML SDV VIAL INJ ONE; +MIDAZOLAM HCL 2 MG/2 ML VIAL ONE; +ONDANSETRON HCL INJ 2MG/ML 2ML 2 MG/ML VIAL ONE; +PROPOFOL IV EMULSION 10 MG/ML 20 ML VIAL ONE; +ROCURONIUM BROMIDE 10 MG/ML 5ML VIAL ONE; +SEVOFLURANE INHAL SOLN 250 ML PEN BTL ONE
--- NOTE | 2019-05-31 10:27 | Diagnostic Imaging Report ---
EXAMINATION: Fluoroscopically guided ERCP INDICATION: Biliary obstruction COMPARISON: KUB 04/25/2019 FINDINGS: Fluoroscopic guidance was utilized for endoscopic retrograde cholangiopancreatography. Fluoroscopy time: 36 seconds Reference air kerma: 19.40 mGy Provided images demonstrate endoscope in the duodenum with wire access to the biliary system. Initial contrast injection demonstrated multiple filling defects in the common bile duct, the more superior of which is at the junction with the cystic duct and the more inferior of which is at the distal common bile duct near the ampulla. Subsequent injection following stone retrieval demonstrates patency of the biliary system with no residual filling defects. IMPRESSION: Fluoroscopic guidance of ERCP as above. Signed by: Dionte Antonio MD on 05/31/2019 10:24 AM
[2019-05-31 10:35] VITALS: BP 145/91
--- NOTE | 2019-05-31 10:46 | Operative Report ---
DATE OF PROCEDURE: 05/31/2019 SURGEON: Taras Cesar MD PROCEDURES: ERCP note with sphincterotomy balloon sweep and removal of common bile duct stone. ADDITIONAL REFERRING PHYSICIAN: Duke Hill MD. INDICATIONS FOR PROCEDURE: The patient is status post biliary stent insertion. She is in for stent removal, cholangiogram, and balloon sweep. MEDICATIONS: The patient was done under general endotracheal anesthesia, please see anesthesiologist's note. PROCEDURE IN DETAIL: With the patient in the prone position and after adequate induction of general endotracheal anesthesia, the flexible fiberoptic Olympus side-viewing scope was inserted into the esophagus and advanced all the way to the second portion of the duodenum. The ampulla was identified. The previously described biliary stent was noted in good position and that was removed per the polypectomy snare. The common bile duct was then cannulated with ease and sphincterotomy site was extended. A balloon occlusion cholangiogram was carried out. This was followed with a balloon sweep x3 with removal of large amount of solid debris and a single stone approximately 6 mm in size. The scope was subsequently withdrawn and the patient tolerated the procedure well. IMPRESSION: 1. Biliary stent removed per polypectomy snare. 2. ERS was carried out to extend the sphincterotomy. 3. Balloon sweep x3 with removal of a large amount of solid debris and approximately 6 mm stone. The patient tolerated the procedure well. Taras Cesar MD [facility] [place]/MODL /[id number] cc: MD Samira Ledesma NP
== END | disposition home or self-care (01) ==
LOC: ENDO 07:30
PROVIDERS: ATTEND Internal Medicine Gastroenterology
DX: K80.50 Calculus of bile duct without cholangitis or cholecystitis without obstruction (principal); Z45.89 Encounter for adjustment and management of other implanted devices; K58.9 Irritable bowel syndrome, unspecified; L40.9 Psoriasis, unspecified; F17.210 Nicotine dependence, cigarettes, uncomplicated
CPT/HCPCS: 43262; 43264; 43275; 74328; 81025; J1100; J2001; J2250; J2405; J2704; J3010; Q9967; 43260; 43274

== ENCOUNTER 2019-11-14 09:39 | Inpatient (IN) | payer OTHER ==
[~2019-11-14] VITALS: Ht 167.6 cm; Wt 114.8 kg
[~2019-11-14 09:39] MED LIST changes: -DEXAMETHASONE SOD PHOS INJ 4 MG/ML VIAL ONE; -FENTANYL CITRATE/PF 100MCG/2 ML INJ ONE; -INDOMETHACIN 50 MG SUPP.RECT RC ONE; -IOPAMIDOL 610MG/1ML 300 MG/ML VIAL IV ONE; -LIDOCAINE HCL 2% LOCAL INJ 5 ML SDV VIAL INJ ONE; -MIDAZOLAM HCL 2 MG/2 ML VIAL ONE; -ONDANSETRON HCL INJ 2MG/ML 2ML 2 MG/ML VIAL ONE; -PROPOFOL IV EMULSION 10 MG/ML 20 ML VIAL ONE; -ROCURONIUM BROMIDE 10 MG/ML 5ML VIAL ONE; -SEVOFLURANE INHAL SOLN 250 ML PEN BTL ONE
[2019-11-14] MEDS ORDERED: ENALAPRILAT IV INJ 1.25 MG/ML VIAL IV STA (10:08)
[2019-11-14] MEDS ORDERED: SODIUM CHLORIDE 0.9% 1000ML 1,000 ML IV ONE (10:15)
[2019-11-14] MEDS ORDERED: PIPER-TAZ 3.375 GM 50 ML IV ONE (10:30)
[2019-11-14 10:35] LABS: BASOPHILS # (AUTO) 0.1 (0.0-0.1); BASOPHILS % 0.5 % (0.0-1.0); EOSINOPHILS # (AUTO) 0.2 (0.0-0.4); EOSINOPHILS % 2.2 % (0.0-6.0); HEMATOCRIT 40.7 % (34.2-44.1); LYMPHOCYTES # (AUTO) 1.6 (1.0-3.2); MEAN CORPUSCULAR HEMOGLOBIN 33.9 pg (28-32); MEAN CORPUSCULAR HGB CONC 38.3 g/dL (31-35); MEAN CORPUSCULAR VOLUME 88.5 fL (81-99); MONOCYTES # (AUTO) 0.7 (0.2-0.8); MONOCYTES % 6.4 % (4.4-11.3); NEUTROPHILS # (AUTO) 7.9 (2.1-6.9); NEUTROPHILS % 75.4 % (38.7-80.0); PLATELET COUNT 265 x10e3/uL (140-360); RED CELL DISTRIBUTION WIDTH 12.5 % (11.7-14.4)
[2019-11-14 10:53] LABS: ALANINE AMINOTRANSFERASE 13 IU/L (0-55); ALBUMIN 2.9 g/dL (3.5-5.0); ALBUMIN/GLOBULIN RATIO 0.7 (0.8-2.0); ALKALINE PHOSPHATASE 138 IU/L (40-150); ANION GAP 10.1 mmol/L (8-16); BLOOD UREA NITROGEN 10 mg/dL (7-26); BUN/CREATININE RATIO 13 (6-25); CALCIUM 8.3 mg/dL (8.4-10.2); CARBON DIOXIDE 29 mmol/L (22-29); CHLORIDE 101 mmol/L (98-107); CHOL/HDL RATIO 4.5 (3.0-3.6); CREATININE, SERUM 0.76 mg/dL (0.57-1.11); EST GLOMERULAR FILTRATION RATE > 60 ML/MIN (60-); GLUCOSE 277 mg/dL (74-118); POTASSIUM 4.1 mmol/L (3.5-5.1); SODIUM 136 mmol/L (136-145)
[2019-11-14] MEDS ORDERED: VANCOMYCIN 1GM/NS 250 ML 250 ML IV ONE (11:10)
[2019-11-14 11:17] LABS: HEMOGLOBIN 15.6 g/dL (12.0-16.0)
[2019-11-14] MEDS ORDERED: DEXTROSE 50% SYRINGE 50 ML IV PRN (12:30)
[2019-11-14] MEDS ORDERED: ONDANSETRON HCL INJ 2MG/ML 2ML 2 MG/ML VIAL IV PRN (12:30)
[2019-11-14] MEDS ORDERED: SODIUM CHLORIDE FLUSH 10 ML SYR INJ PRN (12:30)
--- NOTE | 2019-11-14 13:39 | Diagnostic Imaging Report ---
Exam: Left foot 3 views Clinical history: Osteomyelitis of fourth and fifth toes Findings: There is no evidence of acute fracture or malalignment. The articular joints are within normal limits. There are no bony destructive changes to suggest advanced osteomyelitis. However, if there is clinical suspicion for early osteomyelitis, bone scan or MR is recommended. Small calcaneal osteophytes are visualized. Impression: 1. No radiographic evidence of acute osseous injury or advanced osteomyelitis. Signed by: Dr. Salvatore De La Fuente MD on 11/14/2019 1:36 PM
[2019-11-14 15:28] VITALS: BP 152/89
--- NOTE | 2019-11-14 15:28 | NUR ---
PT ARRIVED FROM ER TO ROOM 211. PT AWAKE, ALERT, NO SIGNS OF DISTRESS, ORIENTED X3. FAMILY AT BEDSIDE. ALL SAFETY MEASURES IN PLACE.
[2019-11-14 16:32] VITALS: BP 129/60
[2019-11-14] MEDS ORDERED: METFORMIN HCL500 M2 PO (19:59)
[2019-11-14] MEDS ORDERED: LEVOTHYROXINE75 MCG PO (19:59)
[2019-11-14] MEDS ORDERED: ATORVASTATIN CA20 MG PO (19:59)
[2019-11-14] MEDS ORDERED: ASPIRIN81 MG PO (19:59)
[2019-11-14] MEDS ORDERED: PLAVIX75 MG PO (19:59)
[2019-11-14 20:00] VITALS: BP 157/74
[2019-11-14] MEDS: HYDROCODONE/APAP 10MG-325MG TAB PO PRN (20:07)
[2019-11-14 20:25] VITALS: BP 157/74
[2019-11-15] VITALS (8 sets, daily range): BP systolic 119–157; BP diastolic 58–88
--- NOTE | 2019-11-15 00:12 | NUR ---
Paged Dr Payne regarding elevated Blood sugar, spoke with Chely. Awaiting call back.
--- NOTE | 2019-11-15 01:56 | NUR ---
11/14/2019 HPI: Mrs. Kelley is a 39-year-old female patient with a past medical history of diabetes mellitus type 2 who presented to the emergency department complaining pain located in the left foot. The pain was associated with swelling, redness, warm and tenderness to touch. The patient relates it started after injuring th e left foot with broken glass. The patient consulted her PCP who ordered a wound culture and empiric IV antibiotics 4 days previous to the emergency department arrival. However, the patient did not notice an improvement. The patient did have difficulty to walk because of the pain of the left foot. The patient denies fever, chills, nausea, vomiting, chest pain, palpitations, paroxysmal nocturnal dyspnea, dyspnea, shortness of breath, abdominal pain, diarrhea, incontinence, sensory or motor loss. Review of system: Constitutional: No fever, no chills. HEENT: Denies headache, no ear pain, no nosebleed, no sore throat. Cardiovascular: Denies chest pain, PND, swelling of the legs, palpitations or blackout spells. Respiratory: Denies cough, hemoptysis, or shortness of breath. Gastrointestinal: Denies nausea, vomiting, diarrhea, hematemesis or melena. Genitourinary: Denies hematuria, frequency or dysuria. Neurologic: Denies convulsive disorders, no focal weakness, no ataxia. Psych: Denies anxiety or depression Skin: No rash. Hematological system: Denies bleeding, no petechia. Musculoskeletal: Left foot with swelling, redness, and tenderness. No significant deformity or swelling of the joints. Past medical history: Diabetes mellitus type 2 Gallbladder calculus Psoriasis Obesity Past surgical history: None. Allergies: No known allergies. Social history: Never smoker. Alcohol: Occasional use. No drug use. Family history: Diabetes mellitus type 2 Hypertension Heart disease Objective: Vital signs: Temperature: 98.7 Pulse: 87 RR: 18 Blood pressure: 157/74 O2 sat: 98% Physical exam: General: The patient is afebrile, awake, alert, oriented to person, place, and time. The patient is in no acute distress. The patient is comfortable, but complaining of pain in the left foot. HEENT: Normocephalic, atraumatic, PERRLA. Lungs: Clear to auscultation bilaterally, no rales, no rhonchi Cardiovascular: Regular heart rate and rhythm. No rubs, no murmur, no gallops. Abdomen: Soft, nontender, no guarding, no rebound, BS positive, no organomegaly. Extremities: Left foot: Tenderness, redness, swelling, purulent drainage, and ecchymosis of the dorsal and plantar area close to the third, fourth and fifth t oe. Rest of the extremities with no abnormalities. Neurological: Alert, oriented x3. No sensory and motor deficit, normal reflexes, and normal gait. Psych: Normal mood. No anxious. Skin: Moist mucosas. Skin warm and dry. No petechia. Laboratory data: 11/14/2019 CBC: WBC: 10.47 RBC: 4.60 Hgb: 15.6 HCT: 40.7 MCV: 88.5 MCH: 33.9 MCHC: 38.3 RDW: 12.5 Platelet count: 265 Neutrophils: 75.4% Lymphocytes: 15.0% Monocytes: 6.4% Eosinophils: 2.2% Basophil: 0.5% Neutrophils: 7.9 Lymphocytes: 1.6 Monocytes: 0.7 Eosinophils: 0.2 Basophils: 0.1 Abs immature Gran: 0.05 Chemistry: POC glucose: 346 mg/dL Assessment: Diabetic foot ulcer Cellulitis of the left foot with outpatient treatment failure Uncontrolled diabetes mellitus type 2 with hyperglycemia Hypertension History of hypothyroidism History of hyperlipidemia Plan of care: Supportive care Reconcile medications IV antibiotics IV fluids Wound care Glycemic control Report wound culture Repeat labs as needed DVT Prophylaxis Report wound culture Consider ID consultation if not improving
[2019-11-15] MEDS ORDERED: DEXTROSE 50% SYRINGE 50 ML IV PRN (02:15)
[2019-11-15 05:24] LABS: BASOPHILS # (AUTO) 0.1 (0.0-0.1); BASOPHILS % 0.5 % (0.0-1.0); EOSINOPHILS # (AUTO) 0.3 (0.0-0.4); EOSINOPHILS % 2.8 % (0.0-6.0); HEMATOCRIT 37.8 % (34.2-44.1); HEMOGLOBIN 12.9 g/dL (12.0-16.0); LYMPHOCYTES # (AUTO) 2.1 (1.0-3.2); LYMPHOCYTES % 22.5 % (18.0-39.1); MEAN CORPUSCULAR HEMOGLOBIN 30.2 pg (28-32); MEAN CORPUSCULAR HGB CONC 34.1 g/dL (31-35); MEAN CORPUSCULAR VOLUME 88.5 fL (81-99); MONOCYTES # (AUTO) 0.7 (0.2-0.8); MONOCYTES % 7.1 % (4.4-11.3); NEUTROPHILS # (AUTO) 6.2 (2.1-6.9); NEUTROPHILS % 66.8 % (38.7-80.0); PLATELET COUNT 214 x10e3/uL (140-360); RED BLOOD COUNT 4.27 x10e6/uL (3.6-5.1); RED CELL DISTRIBUTION WIDTH 12.4 % (11.7-14.4)
[2019-11-15] MEDS: HYDROCODONE/APAP 10MG-325MG TAB PO PRN (05:45)
[2019-11-15] MEDS ORDERED: SODIUM CHLORIDE 0.9% 250ML 250 ML ONE (05:49)
[2019-11-15 05:51] LABS: ALANINE AMINOTRANSFERASE 11 IU/L (0-55); ALBUMIN 2.5 g/dL (3.5-5.0); ALBUMIN/GLOBULIN RATIO 0.7 (0.8-2.0); ALKALINE PHOSPHATASE 122 IU/L (40-150); ANION GAP 8.9 mmol/L (8-16); BLOOD UREA NITROGEN 11 mg/dL (7-26); BUN/CREATININE RATIO 15 (6-25); CALCIUM 7.8 mg/dL (8.4-10.2); CARBON DIOXIDE 25 mmol/L (22-29); CHLORIDE 104 mmol/L (98-107); CREATININE, SERUM 0.72 mg/dL (0.57-1.11); EST GLOMERULAR FILTRATION RATE > 60 ML/MIN (60-); GLUCOSE 293 mg/dL (74-118); PHOSPHORUS 2.9 MG/DL (2.3-4.7); POTASSIUM 3.9 mmol/L (3.5-5.1); SODIUM 134 mmol/L (136-145)
[2019-11-15] MEDS: PIPER-TAZ 3.375 GM 50 ML IV SCH ×3 (06:00→21:34)
[2019-11-15] MEDS: LEVOTHYROXINE SODIUM 75 MCG TAB PO SCH (06:37)
--- NOTE | 2019-11-15 07:05 | NUR ---
RCD PT AT BED PT IS ALERT AND ORIENTED RESTING ON BED IV PATENT BY SALINE FLUSH BED LOW AND LOCKED CALL LIGHT IN REACH
--- NOTE | 2019-11-15 07:10 | NUR ---
Bedside report and rounds completed with oncoming nurse. Patient in bed resting, call light within reach. No issues or concerns noted.
[2019-11-15] MEDS: INSULIN LISPRO 100 UNIT/1 ML 3ML VIAL SQ SCH ×4 (07:30→21:15)
[2019-11-15] MEDS: CLOPIDOGREL BISULFATE 75 MG TAB PO SCH (09:00)
[2019-11-15] MEDS: METFORMIN HCL 500 MG TAB CR PO SCH ×2 (09:00→16:34)
[2019-11-15] MEDS: ASPIRIN 81 MG CHEW TAB PO SCH (09:00)
--- NOTE | 2019-11-15 15:10 | NUR ---
Visit made by the Spiritual Care Department Pastoral Visitor, Estella Keen. PV provided pastoral presence, prayer, hospitality, and supportive listening. Pastoral Visitor informed pt/family of the scope of [facility] and availability. EDENILSON SMITH Broom Worker Spiritual Care Department O: [phone]
--- NOTE | 2019-11-15 15:23 | Consultation ---
DATE OF CONSULTATION: 11/15/2019 REASON FOR CONSULTATION: The patient being a [id number] diabetic with a discolored forefoot and cyanotic 5th digit, left foot. HISTORY OF PRESENT ILLNESS: This is a pleasant 39-year-old female, who was seen at bedside, accompanied by mother, who relates that she twisted her foot approximately five days ago and created a blister to the dorsal aspect of the 5th digit. The blister popped and the toe started turning discolored and the foot started swelling excessively. The patient also relates that prior to that, two weeks ago she stepped on a piece of glass, which may have entered the plantar aspect of the left lower extremity. The patient is currently denying any history of fever, chills, nausea, vomiting, who presented through the emergency room secondary to the swelling and discoloration of the left foot. PAST MEDICAL HISTORY: Remarkable for [id number] diabetes, psoriatic arthritis, and hypothyroidism. PAST SURGICAL HISTORY: Remarkable for thyroidectomy and cholecystectomy. ALLERGIES: THE PATIENT DENIES. CURRENT MEDICATIONS: Note listed in chart including IV Zosyn. SOCIAL HISTORY: Denies any smoking, drinking, or recreational drug use. Works as an weapons officer naval activity. FAMILY HISTORY: Remarkable for diabetes. REVIEW OF SYSTEMS: CARDIAC: Denies any palpitations or arrhythmias. RESPIRATORY: Denies any shortness of breath or productive cough. GASTROINTESTINAL: Denies any diarrhea or constipation. GENITOURINARY: Denies any problems voiding or hematuria. LABORATORY DATA: Noted has a white blood cell count dropping from 10.4-9.3, hemoglobin of 12.9 with a platelet count of 214. PHYSICAL EXAMINATION: VITAL SIGNS: Afebrile, pulse rate 78, respirations 19, blood pressure 142/88, O2 saturation 95%. Podiatric physical examination reveals the following: VASCULATURE: Pedal pulses of both the DP and PT are somewhat diminished. SKIN: Temperature between cool and warm to touch. NEUROLOGICAL: Reveals loss of protective sensation when utilizing [place] 5.07 monofilament wire. MUSCULOSKELETAL: Reveals muscle mass to be asymmetrical, some swelling noted to the left lower extremity when compared to the right with muscle strength 4/5 to all muscle groups. DERMATOLOGICAL: Reveals discoloration to the 5th toe left foot, which seems to be interdigital ulceration, a very swollen 5th digit when compared to the contralateral side. X-rays were evaluated revealing no gas in the tissue or osteomyelitic changes and no evidence except of metallic foreign body. ASSESSMENT: Cellulitis with diabetic neuropathy and pregangrenous changes noted to the 5th toe left foot with a grade 2 ulcer. PLAN: We will continue to treat conservatively. We will start applying Bactroban ointment followed by diluted wet-to-dry Betadine. Continue IV antibiotics. We will continue to follow. The patient is aware if not responsive may end up losing part of her foot, we will let the foot demarcate before any definitive procedure is done. NARCISO Sanchez/CHE /[id number]
--- NOTE | 2019-11-15 18:43 | NUR ---
Report received from day RN. Pt alert and oriented x4. Respirations even and unlabored. Hx Psoriasis- present on both elbows,both arms,both legs and back. Left foot hx cellulitis- area circled discolored and edematous. black area noted on left little toe . Denies pain. LBM yesterday. Ambulate to bathroom- assistance - prn. Family at bedside. sl in left ac 20g. site healthy and flushes well. Bed in low position. Call light within reach.
--- NOTE | 2019-11-15 18:43 | NUR ---
PT RESTING ON BED BED SIDE REPORT GIVEN TO ONCOMING NURSE
--- NOTE | 2019-11-15 21:00 | NUR ---
Dr Varghese here to see pt. New orders received.
[2019-11-15] MEDS: ATORVASTATIN 40 MG TAB PO SCH (21:31)
[2019-11-15] MEDS: VANCOMYCIN 1GM/NS 250 ML 250 ML IV SCH (22:29)
[2019-11-16] VITALS (8 sets, daily range): BP systolic 136–183; BP diastolic 72–82
--- NOTE | 2019-11-16 00:47 | NUR ---
Date of service 11/15/2011 SUBJECTIVE Events noted. Denies chest pain, no shortness of breath, no vomiting, no nausea, no diarrhea, no fever no chills. ROS General: Denies fever chills Cardia vascular: No CP, no edema Respiratory: No SOB, no cough, no hemoptysis GI: Denies nausea, no vomiting, no diarrhea no hematemesis no Genitourinary: No dysuria, hematuria, no incontinence. No Allen catheter. Neuro: No focal weakness. Alert oriented x3 Musculoskeletal: Swelling and redness on the left foot. Psychiatrist: No anxiety Physical exam: Patient was in no distress. Vital signs: Blood pressure 157/78, respiration 20, pulse 83, temperature 98.6 HEENT: No gross abnormalities noted. Neck: Supple no JVD Lungs: Clear to auscultation Heart: Regular rate and rhythm no murmurs no gallops Abdomen: Soft nontender, no organomegaly, bowel sounds present. Extremities: No cyanosis, clubbing or edema Neuro: No Patient alert oriented 3 Musculoskeletal: No significant deformity or swelling of joints. Psych: Normal mood Assessment: Diabetic foot ulcer Cellulitis of the left foot with outpatient treatment failure Uncontrolled diabetes mellitus type 2 with hyperglycemia Hypertension History of hypothyroidism History of hyperlipidemia Plan of care: Supportive care Reconcile medications IV antibiotics IV fluids Wound care Glycemic control Report wound culture Repeat labs as needed DVT Prophylaxis Report wound culture Consider ID consultation if not improving
--- NOTE | 2019-11-16 03:25 | Consultation ---
DATE OF CONSULTATION: 11/15/2019 HISTORY OF PRESENT ILLNESS: The patient is a very pleasant a 39-year-old with history of diabetes mellitus, history of neuropathy. The patient bought a new shoes few days ago, comes in with redness and swelling and cellulitic changes of the 5th toe. The patient does not have any prior history of foot infection, but she does have diabetes mellitus on insulin, psoriasis, hypothyroidism, and obesity. PAST SURGICAL HISTORY: Thyroidectomy and cholecystectomy. ALLERGIES: NKA. SOCIAL HISTORY: There is no smoking, drug abuse, or alcohol abuse. FAMILY HISTORY: Otherwise unremarkable. REVIEW OF SYSTEMS: HEENT: Negative. PULMONARY: Negative. CARDIAC: Negative. : Negative. GI. Negative. SKIN: There is no other rash. LABORATORY DATA: White count 9.3, hemoglobin 12.9. Sodium 134, potassium 3.9, and creatinine 0.72. MEDICATION LIST: She is currently on metformin, insulin and Zosyn. PHYSICAL EXAMINATION: GENERAL: She is currently alert, oriented, does not seem to be in acute distress. VITAL SIGNS: Stable. Currently afebrile. HEENT: Not icteric. NECK: Supple. CHEST: Clear. HEART: S1, S2. No murmur. ABDOMEN: Soft. Bowel sounds present. No tenderness. EXTREMITIES: There is no edema. There is redness and swelling of the left foot. There is gangrenous changes noted on the 5th toe. IMPRESSION: Infection of the foot, concerned about osteomyelitis, concerned about early gangrene of the foot. Agree with Zosyn and add vancomycin. Obtain sedimentation rate. Obtain C-reactive protein. She had an x-ray of her foot, which showed there is no evidence of osteo. We will order an MRI. We will also need a vancomycin trough with the 4th dose. We will see how she will do clinically. Discussed with the patient. Discussed with medical team. We will follow with you. Thank you for asking me to see this patient. MD GABRIELLE Polo/MODL /[id number]
[2019-11-16] MEDS: HYDROCODONE/APAP 10MG-325MG TAB PO PRN (04:42)
[2019-11-16] MEDS: PIPER-TAZ 3.375 GM 50 ML IV SCH ×2 (06:00→14:00)
[2019-11-16] MEDS: LEVOTHYROXINE SODIUM 75 MCG TAB PO SCH (06:07)
--- NOTE | 2019-11-16 07:08 | NUR ---
RCD PT AT BED PT IS ALERT AND ORIENTED RESTING ON BED IV PATENT BY SALINE FLUSH BED LOW AND LOCKED CALL LIGHT IN REACH
[2019-11-16] MEDS: INSULIN LISPRO 100 UNIT/1 ML 3ML VIAL SQ SCH ×4 (07:30→21:00)
[2019-11-16] MEDS: METFORMIN HCL 500 MG TAB CR PO SCH ×2 (08:00→17:00)
[2019-11-16] MEDS: CLOPIDOGREL BISULFATE 75 MG TAB PO SCH (09:00)
[2019-11-16] MEDS: VANCOMYCIN 1GM/NS 250 ML 250 ML IV SCH ×2 (09:00→21:51)
[2019-11-16] MEDS: ASPIRIN 81 MG CHEW TAB PO SCH (09:00)
--- NOTE | 2019-11-16 10:23 | Diagnostic Imaging Report ---
EXAMINATION: ANKLE 3+ VIEWS LEFT INDICATION: Cellulitis COMPARISON: None FINDINGS: No acute fracture or dislocation. The ankle mortise is intact and symmetric. Mild circumferential ankle soft tissue swelling. No substantial joint effusion. Moderate degenerative changes of the midfoot. Achilles enthesopathy and small plantar calcaneal spur. Scattered atherosclerotic arterial calcifications. IMPRESSION: Mild ankle soft tissue swelling. No acute osseous injury. Degenerative changes of the midfoot. Bony proliferative changes of the calcaneus. Signed by: Dionte Antonio MD on 11/16/2019 10:21 AM
[2019-11-16] MEDS ORDERED: GADOBENATE DIMEGLUMINE 1 ML IV ONE (10:57)
--- NOTE | 2019-11-16 11:37 | Diagnostic Imaging Report ---
MRI of the left forefoot with and without contrast. History: Diabetic infection. Blister right fifth toe. Decreased range of motion. Pain. Technique: Multiplanar multisequence MRI of the left foot with and without IV contrast. 20 cc IV gadolinium contrast material was administered. Comparison: November 14, 2019 Findings: No acute fracture, dislocation or evidence of avascular necrosis. Moderate degenerative arthrosis most pronounced at the proximal first through third metatarsals and the adjacent cuneiform bones. There are regions of articular cartilage loss, joint space narrowing, subchondral cystic change, bone marrow edema and adjacent soft tissue edema. Abnormal skin thickening with skin blistering and ulceration at the fifth toe on the medial side. There is abnormal underlying bone marrow edema in the fifth toe with what appears to be an adjacent phlegmon. The findings are consistent with cellulitis and worrisome for early osteomyelitis. This is best seen on series 10 image 16 through 18 and sagittal image 5 through 7 as well as coronal image 9 through 11. No well-formed peripherally enhancing fluid collection is seen to suggest an abscess. There is diffuse muscle atrophy. No ligamentous or tendon tear. The visualized neurovascular bundles are intact. Impression: Abnormal skin thickening with skin blistering and ulceration at the fifth toe on the medial side. There is abnormal underlying bone marrow edema in the fifth toe with what appears to be an adjacent phlegmon. The findings are consistent with cellulitis and worrisome for early osteomyelitis.No well-formed peripherally enhancing fluid collection is seen to suggest an abscess. Signed by: Dr. Mick Rocha M.D. on 11/16/2019 11:35 AM
--- NOTE | 2019-11-16 16:39 | Progress Note ---
DATE: 11/16/2019 SUBJECTIVE: The patient at bedside still having some pain to the left lower extremity. She is denying any history of fever, chills, nausea, or vomiting. Has pain to the foot and ankle area. OBJECTIVE: VITAL SIGNS: Afebrile. Pulse rate 82, respirations 20, blood pressure 143/78, and O2 saturation 96%. EXTREMITIES: Has positive edema to the left lower extremity, cellulitis of the left great toe. The left 5th digit is looking better. Positive edema and pain to the left talotibial joint. Some drainage noted to the left 5th toe. LABORATORY DATA: X-rays were negative for any gas in tissue, osteomyelitic changes at this point. ASSESSMENT: 1. Capsulitis, left talotibial joint. 2. Edema left foot. 3. Cellulitis with neuropathy. PLAN: X-rays of the left ankle three-views will be ordered. We will continue local wound care. The 5th digit may be debrided tomorrow at bedside. We will continue local wound care for now. NARCISO Sanchez/CHE /[id number]
--- NOTE | 2019-11-16 17:25 | Progress Note ---
DATE: 11/16/2019 SUBJECTIVE: Ms. Kelley is doing better. There are no new complaints. REVIEW OF SYSTEMS: Otherwise unremarkable. The patient did have an MRI, which showed minimal underlying bone edema, worrisome for early osteo. PHYSICAL EXAMINATION: GENERAL: Alert and oriented. Does not seem to be in acute distress. VITAL SIGNS: Stable, currently afebrile. HEENT: She is not icteric. NECK: Supple. CHEST: Clear. HEART: S1, S2. No murmur. ABDOMEN: Soft. EXTREMITIES: The foot seems to be less red. The 5th toe remains gangrenous . The plan for her to go to debridement. IMPRESSION: Osteomyelitis of the 5th toe, diabetes mellitus with neuropathy, obesity. Continue IV antibiotic. Going for debridement. We will get a PICC line. We will arrange for 4 weeks of intravenous antibiotic and reassess. MD GABRIELLE Polo/CHE /[id number]
--- NOTE | 2019-11-16 18:53 | NUR ---
REPORT RECEIVED FROM DAY NURSE. PT IS ALERT AND ORIENTED X4. RESPIRATIONS ARE EVEN AND UNLABORED. 20G LT AC INTACT,SITE HEALTHY. PT DENIES PAIN. LBM YESTERDAY. PT AMBULATE TO BATHROOM TOLERATED. CELLULITIS LEFT FOOT. LEFT FOOT ELEVATED ON BED. BLACKED AREA NOTED IN BETWEEN 4-5TH TOE.FAMILY AT BEDSIDE. CALL LIGHT WITHIN REACH. BED LOCKED AND IN LOW POSITION.
--- NOTE | 2019-11-16 18:53 | NUR ---
PT RESTING ON BED BED SIDE REPORT GIVEN TO ONCOMING NURSE
[2019-11-16] MEDS: ATORVASTATIN 40 MG TAB PO SCH (21:51)
[2019-11-17] VITALS (7 sets, daily range): BP systolic 135–190; BP diastolic 68–90
[2019-11-17] MEDS: PIPER-TAZ 3.375 GM 50 ML IV SCH ×2 (00:08→06:11)
[2019-11-17] MEDS ORDERED: LIDOCAINE HCL 2% LOCAL 20 ML VIAL INJ ONE (05:15)
[2019-11-17] MEDS: LEVOTHYROXINE SODIUM 75 MCG TAB PO SCH (06:11)
[2019-11-17] MEDS: INSULIN LISPRO 100 UNIT/1 ML 3ML VIAL SQ SCH ×4 (08:15→21:00)
[2019-11-17] MEDS ORDERED: ONDANSETRON HCL 4 MG ORAL DISINTEGRATING TAB PO PRN (09:15)
[2019-11-17] MEDS: MUPIROCIN 2% OINT 22 GM TUBE TOP SCH (09:25)
[2019-11-17] MEDS: CLOPIDOGREL BISULFATE 75 MG TAB PO SCH (09:25)
[2019-11-17] MEDS: METFORMIN HCL 500 MG TAB CR PO SCH ×2 (09:25→17:31)
[2019-11-17] MEDS: ASPIRIN 81 MG CHEW TAB PO SCH (09:25)
[2019-11-17] MEDS: CEFTRIAXONE SOD 2 GM/NS 100 ML 100 ML IV SCH (12:00)
--- NOTE | 2019-11-17 15:39 | NUR ---
WOUND CARE CONSULTATION INITIAL EVALUATION FOR 39 YEAR OLD FEMALE WITH DIAGNOSIS OF DIABETIC INFECTION TO LEFT FOOT. TRISTAN 22 CONSERVATIVE PUP STATUS AND INTERVENTIONS AND LOW AIR MATTRESS LABS: WBC-9.34 HGB-12.9 SEDIMENTATION RATE PENDING. C-REACTIVE PENDING. MEDS: ZOSYN AND VANCOMYCIN. MICRO- WOUND CULTURE- STREP AGALACTIAE GROUP B AND STREPTOCOCCUS VIRIDIANS. IMAGING: -11/16/2019 FOOT MRI- FINDINGS ARE CONSISTENT WITH CELLULITIS AND WORRISOME FOR EARLY OSTEOMYELITIS. -11/16/2019 ANKLE [id number] FOR ANY GAS IN TISSUE, OSTEOMYELITIC CHANGES AT THIS POINT. -11/14/2019 LEFT X-RAY 3 VIEW- NO RADIOGRAPHIC EVIDENCE OF ACUTE OSSEOUS INJURY OR ADVANCED OSTEOMYELITIS. IMPRESSION: SKIN ASSESSMENT COMPLETED, PT PRESENTS GRADE 2 DIABETIC ULCER TO LEFT 5TH TOE, MEASURING 2.5 CM X 5.5 CM X 0.2 CM; CIRCUMFERENTIAL, SEROSANGUINEOUS DRAINAGE PRESENT; 95% RED GRANULATION, 5% SLOUGH; PERIWOUND MACERATED AND PALE. NO OTHER SKIN ALTERATIONS NOTED. DR. AVALOS ORDER IN PLACE; BACTROBAN OINTMENT FOLLOWED BY DILUTED WET TO DRY BETADINE AND CONTINUE WITH IV ANTIBIOTICS. POST DEBRIDEMENT DONE TODAY BY . RECOMMENDATION: -NURSING TO CONTINUE WITH DR. AVALOS ORDER IN PLACE; BACTROBAN OINTMENT FOLLOWED BY DILUTED WET TO DRY BETADINE AND CONTINUE WITH IV ANTIBIOTICS. - CONTINUE WITH CONSERVATIVE PUP STATUS, INTERVENTIONS AND LOW AIR LOSS MATTRESS. -NURSING TO CONTINUE TO ASSIST PT OUT OF BED FOR MEALS AND MUCH TOLERATED. - TURN AND REPOSITION EVERY TWO HOURS. -RECONSULT WOUND CARE NEEDED. -RECOMMEND [facility] FOR HBO THERAPY AND TREATMENT UPON DISCHARGE. Addendum: 11/17/19 at 1613 by Alena Webster RN Amended: Links added.
--- NOTE | 2019-11-17 15:41 | Progress Note ---
DATE: 11/17/2019 SUBJECTIVE: The patient is at bedside, accompanied by mother, having some discomfort to the left lower extremity, but doing better. OBJECTIVE: VITAL SIGNS: Afebrile, pulse rate 84, respirations 20, blood pressure 163/90, and O2 saturation 97%. EXTREMITIES: Has an ulceration with some tendon and bone exposed to 4th interspace, left foot. Still the toes very swollen with dorsal cellulitis of the left lower extremity, but resolving. Ulcer is approximately 1 to 1.5 cm in diameter with a bulbous 5th digit, left foot. LABORATORY DATA: White blood cell count of 9.3. ASSESSMENT: Possible osteomyelitis with a grade 3/4 ulceration, left foot. PLAN: Checking with her neuropathy, sharp excisional debridement of the ulcer was carried down to tendon and bone, devitalized tissue sharply excised until good viable bleeding tissue was achieved. Deep cultures were taken for aerobic and anaerobic growth. We will start Bactroban followed by diluted wet-to-dry Betadine. Continue to treat the patient conservatively. Only IV antibiotics for at least 3 to 4 more days before she can be let go depending on how the patient responds. NARCISO Sanchez/CHE /[id number]
[2019-11-17] MEDS: ATORVASTATIN 40 MG TAB PO SCH (20:59)
[2019-11-17] MEDS: HYDROCODONE/APAP 10MG-325MG TAB PO PRN (21:20)
[2019-11-18] VITALS (8 sets, daily range): BP systolic 126–160; BP diastolic 58–99
--- NOTE | 2019-11-18 02:55 | NUR ---
Date of service: 11/17/2019 Subjective: The patient is doing fine in no distress, denies fever, no chills. No chest pain, no shortness of breath. Patient is being follow up by senior hardware design engineer. The patient is doing fine in no distress, No fever, no chills. Metal Trimmer evaluation noted " The patient underwent sharp excisional debridement of the ulcer was carried down to tendon and bone. devitalized tissue sharply excised until good viable bleeding tissue was achieved. " Deep cultures were taken for aerobic and anaerobic growth. Recomendations is to place the patient on bactroban followed by diluted wet-to-dry Betadine OBJECTIVE: VITAL SIGNS: Afebrile, pulse rate 84, respirations 20, blood pressure 163/90, and O2 saturation 97% Physical exam: General: The patient is afebrile, awake, alert, oriented to person, place, and time. The patient is in no acute distress. The patient is comfortable. Nosignificant pain. HEENT: Normocephalic, atraumatic, PERRLA. Lungs: Clear to auscultation bilaterally, no rales, no rhonchi Cardiovascular: Regular heart rate and rhythm. No rubs, no murmur, no gallops. Abdomen: Soft, nontender, no guarding, no rebound, BS positive, no organomegaly. Extremities: Left foot:Dressing in place Neurological: Alert, oriented x3. No sensory and motor deficit, normal reflexes, and normal gait. Psych: Normal mood. No anxious. Skin: Moist mucosas. Skin warm and dry. No petechia. Assessment: Diabetic foot ulcer Cellulitis of the left foot with outpatient treatment failure Uncontrolled diabetes mellitus type 2 with hyperglycemia Hypertension History of hypothyroidism History of hyperlipidemia Plan of care: 11/15/2019 Supportive care Reconcile medications IV antibiotics IV fluids Wound care Glycemic control Report wound culture Repeat labs as needed DVT Prophylaxis Report wound culture Consider ID consultation if not improving 11/16/2019 Pat is doing well in no distres. Consult ID and senior hardware design engineer. There is a concern about osteomyelitis, early gangrene. On zozyn and vancomycin 11/17/2019 Continue presnt care Antibiotics pe ID
[2019-11-18] MEDS: LEVOTHYROXINE SODIUM 75 MCG TAB PO SCH (05:53)
--- NOTE | 2019-11-18 07:00 | NUR ---
RCD PT AT BED PT IS ALERT AND ORIENTED RESTING ON BED IV PATENT BY SALINE FLUSH FAMILY AT BED SIDE BED LOW AND LOCKED CALL LIGHT IN REACH
[2019-11-18] MEDS: INSULIN LISPRO 100 UNIT/1 ML 3ML VIAL SQ SCH ×4 (07:30→21:11)
[2019-11-18] MEDS: METFORMIN HCL 500 MG TAB CR PO SCH ×2 (08:00→16:19)
[2019-11-18] MEDS: CLOPIDOGREL BISULFATE 75 MG TAB PO SCH (09:00)
[2019-11-18] MEDS: MUPIROCIN 2% OINT 22 GM TUBE TOP SCH (09:00)
[2019-11-18] MEDS: ASPIRIN 81 MG CHEW TAB PO SCH (09:00)
[2019-11-18] MEDS: CEFTRIAXONE SOD 2 GM/NS 100 ML 100 ML IV SCH (10:00)
--- NOTE | 2019-11-18 15:38 | Diagnostic Imaging Report ---
EXAMINATION: CHEST XRAY LINE PLACEMENT COMPARISON: None INDICATION: ^LINE PLACEMENT, probably osteomyelitis ^[id number] ^1515 ^Y DISCUSSION: Frontal view of the chest obtained at 1504 hours. HEART AND MEDIASTINUM: The cardiomediastinal silhouette is unremarkable. LINES: Left PICC line terminates in the SVC without pneumothorax. LUNGS: Low lung volumes. No pneumonia or pulmonary edema. PLEURA: No pleural effusion or pneumothorax. BONES AND SOFT TISSUES: No focal osseous lesion. The soft tissues are normal. IMPRESSION: Left PICC line terminates in the SVC without pneumothorax. No acute cardiopulmonary process. Signed by: Dr. Richard Kenny MD on 11/18/2019 3:34 PM
--- NOTE | 2019-11-18 16:00 | NUR ---
DRESSING CHANGED ON LT FOOT
--- NOTE | 2019-11-18 16:53 | NUR ---
ARIEL RAMIREZ FROM RADIOLOGY OK TO USE PICC LINE
--- NOTE | 2019-11-18 17:00 | NUR ---
DR BAILEY MCELROY TO DO BED SIDE INCISION AND DRAINAGE ON TOMORROW CONSENT SIGNED THINS AT BED SIDE
[2019-11-18] MEDS: HYDROCODONE/APAP 10MG-325MG TAB PO PRN (17:16)
--- NOTE | 2019-11-18 17:43 | Diagnostic Imaging Report ---
Ankle complete CPT CODE: 16311 HISTORY: Twisting injury, cellulitis and abscess TECHNIQUE: Three views left ankle obtained COMPARISON: Ankle x-rays 11/16/2019, MRI left foot 11/16/2019. FINDINGS: The distal tibia and fibula appear intact. Ankle mortise remains symmetric. Moderate degenerative changes of the tibiotalar joint and midfoot are stable. Prominent plantar posterior calcaneal spurs. The calcaneus appears intact. The visualized portions of the midfoot and forefoot are intact. No periosteal new bone formation or erosive changes. Diffuse calcifications of the arterial structures. No air in the soft tissues. IMPRESSION: No acute traumatic pathology. Stable degenerative changes. No radiographic evidence of osteomyelitis. Signed by: Dr. Richard Kenny MD on 11/18/2019 5:40 PM
--- NOTE | 2019-11-18 19:05 | NUR ---
PT RESTING ON BED BED SIDE REPORT GIVEN TO ONCOMING NURSE
--- NOTE | 2019-11-18 19:39 | NUR ---
Subjective: The patient was doing fine at the time of my evaluation. Patient had no complaints. Does have dressing in place on left foot. The patient is being followed by ID. Recommendations noted continue antibiotics as advised. She denies having fever chills. No chest pain or shortness of breath. No diarrhea, no nausea no vomiting.Application Developer Manager recommendations noted. Objective: Patient alert oriented to person time place. Patient no distress. Vital signs blood pressure: 151/99, respirations 17, pulse 80, temperature 97.0. HEENT: No gross abnormalities Neck: Supple no JVD Lungs: Clear to auscultation Heart: Regular rate and rhythm, no murmurs no gallops Abdomen: Soft non tender, no guarding. Extremities: No edema. Dressing placed on the left foot Neurologic: Alert oriented 3, no focal weakness. Psychiatrist: Normal mood, normal judgment. Skin: No rashes Assessment: Diabetic foot ulcer Cellulitis of the left foot with outpatient treatment failure Uncontrolled diabetes mellitus type 2 with hyperglycemia Hypertension History of hypothyroidism History of hyperlipidemia Obesity Plan of care: 11/15/2019 Supportive care Reconcile medications IV antibiotics IV fluids Wound care Glycemic control Report wound culture Repeat labs as needed DVT Prophylaxis Report wound culture Consider ID consultation if not improving 11/16/2019 Pat is doing well in no distres. Consult ID and circular clerk. There is a concern about osteomyelitis, early gangrene. On zozyn and vancomycin 11/17/2019 Continue presnt care Antibiotics pe ID 11/18/2019 Continue present care. Podiatry recommendation noted. Debridement tomorrow 11/19/2019. Follow culture sensitivity. Continue antibiotics and local wound care. Bactroban followed by dilute wet-to-dry. Follow-up CBC.Patient seen
--- NOTE | 2019-11-18 19:39 | NUR ---
Date of service 11/18/2019 Subjective: The patient was doing fine at the time of my evaluation. The patient denies any complaints, no fever no chills. No chest pain or shortness of breath. No abdominal pain, nausea, no vomiting,. Objective: Patient alert oriented to person time place. Patient in no distress. Vital signs: Blood pressure 151/80, respiration 18, pulse 86, temperature 96.5 HEENT: No gross abnormalities Neck: Supple no JVD Lungs: Clear to auscultation Heart: Regular rate and rhythm, no murmurs no gallops Abdomen: Soft non tender, no guarding. Extremities: No edema. Dressing placed on the left foot. Neurologic: Alert oriented 3, no focal weakness. Psychiatrist: Normal mood, normal judgment. Skin: No rashes Assessment: Diabetic foot ulcer Cellulitis of the left foot with outpatient treatment failure Uncontrolled diabetes mellitus type 2 with hyperglycemia Hypertension History of hypothyroidism History of hyperlipidemia Plan of care: 11/15/2019 Supportive care Reconcile medications IV antibiotics IV fluids Wound care Glycemic control Report wound culture Repeat labs as needed DVT Prophylaxis Report wound culture Consider ID consultation if not improving 11/16/2019 Patient is doing well in no distress. Consult ID and web search evaluator. There is a concern about osteomyelitis, early gangrene. List of medication reviewed. 11/17/2019 Continue presnt care Antibiotics pe ID 11/18/2019 Continue present care. Podiatry evaluation noted. Ulceration will be debrided tomorrow which is 11/19/2019. Follow-up culture sensitivity. Continue IV antibio tics local wound care. Bactroban followed by dilute wet-to-dry. Still present care. DVT prophylaxis. Presently on ceftriaxone 1 g IV every 24 hours. Arrange for PICC line.
[2019-11-18] MEDS: ENOXAPARIN SODIUM INJ 100 MG/ML SYR SC SCH (20:05)
[2019-11-18] MEDS: ATORVASTATIN 40 MG TAB PO SCH (21:11)
--- NOTE | 2019-11-18 21:51 | Progress Note ---
DATE: 11/18/2019 SUBJECTIVE: The patient is seen at bedside, doing better. Still some swelling to the left lower extremity. She is denying history of fever, chills, nausea, or vomiting. OBJECTIVE: VITAL SIGNS: Afebrile. Pulse 80, respiration 17, blood pressure 151/99, O2 saturation 97%. Ulceration is getting a little bit bigger to the 4th interspace and medial aspect of the 5th digit, left foot. The toe was a little bit more cyanotic on this date, tracking down to bone. LABORATORY DATA: Showed white blood cell count of 9.3. ASSESSMENT: Grade 4 ulcer with possible osteomyelitis with cellulitis and pregangrenous changes. PLAN: Ulceration will once again be debrided tomorrow. X-rays 3 views left foot will be ordered. Awaiting culture and sensitivity report. We will continue IV antibiotics and local wound care with Bactroban followed by diluted wet-to-dry. We will repeat CBC with diff today. NARCISO Sanchez/CHE /[id number]
[2019-11-19] VITALS (9 sets, daily range): BP systolic 127–164; BP diastolic 79–96
[2019-11-19] MEDS: LEVOTHYROXINE SODIUM 75 MCG TAB PO SCH (05:07)
[2019-11-19 06:26] LABS: BASOPHILS # (AUTO) 0.1 (0.0-0.1); BASOPHILS % 0.6 % (0.0-1.0); EOSINOPHILS # (AUTO) 0.3 (0.0-0.4); EOSINOPHILS % 3.5 % (0.0-6.0); HEMATOCRIT 38.7 % (34.2-44.1); LYMPHOCYTES # (AUTO) 2.7 (1.0-3.2); LYMPHOCYTES % 29.3 % (18.0-39.1); MEAN CORPUSCULAR HGB CONC 33.6 g/dL (31-35); MEAN CORPUSCULAR VOLUME 89.4 fL (81-99); MONOCYTES # (AUTO) 0.6 (0.2-0.8); MONOCYTES % 6.4 % (4.4-11.3); NEUTROPHILS # (AUTO) 5.5 (2.1-6.9); NEUTROPHILS % 59.8 % (38.7-80.0); PLATELET COUNT 245 x10e3/uL (140-360); RED BLOOD COUNT 4.33 x10e6/uL (3.6-5.1); RED CELL DISTRIBUTION WIDTH 12.2 % (11.7-14.4)
--- NOTE | 2019-11-19 07:00 | NUR ---
BEDSIDE SHIFT REPORT FROM OPERATIONS CONSULTANT RN. PT DENIES NEEDS AT THIS TIME.
[2019-11-19] MEDS: METFORMIN HCL 500 MG TAB CR PO SCH ×2 (08:13→17:07)
[2019-11-19] MEDS: MUPIROCIN 2% OINT 22 GM TUBE TOP SCH (08:13)
[2019-11-19] MEDS: ASPIRIN 81 MG CHEW TAB PO SCH (08:14)
[2019-11-19] MEDS: CLOPIDOGREL BISULFATE 75 MG TAB PO SCH (08:14)
[2019-11-19] MEDS: INSULIN LISPRO 100 UNIT/1 ML 3ML VIAL SQ SCH ×4 (08:32→20:42)
[2019-11-19] MEDS: CEFTRIAXONE SOD 2 GM/NS 100 ML 100 ML IV SCH (10:12)
--- NOTE | 2019-11-19 14:59 | Progress Note ---
DATE: 11/19/2019 SUBJECTIVE: The patient at bedside, accompanied by nurse and mother, doing somewhat better. Denies any history of fever, chills, nausea, or vomiting. OBJECTIVE: VITAL SIGNS: Afebrile, pulse rate 81, respiration 19, blood pressure 157/96, O2 saturation 99%. LABORATORY DATA: Noted, has a white blood cell count of 9.2. MRIs are suggestive of osteomyelitis of the 5th digit of the left lower extremity. Has a grade 4 ulceration tracking down to bone. The toe was somewhat cyanotic on the state, but better than yesterday. Ulcer is approximately 1 cm in diameter to the medial aspect of the 5th digit right foot with tendon and bone exposed. ASSESSMENT: Grade 4 ulcer, osteomyelitis 5th digit, left foot with diabetic neuropathy with pedal pulses palpable, but diminished. PLAN: Under no anesthesia secondary to her neuropathy sharp excisional debridement of the ulcer was carried down to bone. Devitalized tissue sharply excised until good viable bleeding tissue was achieved via the use of a sterile 10 blade. Following debridement of the ulcer measuring more than 1-1.5 cm in diameter. The bone was scraped utilizing a sterile 10 blade. We will continue to treat conservatively. Bactroban ointment followed by diluted wet-to-dry Betadine was applied. We will continue IV antibiotics such as ceftriaxone. The patient grew strep viridans and still awaiting anaerobic culture and sensitivity. NARCISO Sanchez/CHE /[id number]
[2019-11-19] MEDS: ENOXAPARIN SODIUM INJ 100 MG/ML SYR SC SCH (17:07)
[2019-11-19] MEDS: HYDROCODONE/APAP 10MG-325MG TAB PO PRN (19:45)
--- NOTE | 2019-11-19 19:48 | NUR ---
Date of service 11/19/2019 Subjective: The patient is doing fine at this time. Denies fever, no chills, chest pain, nausea, abdominal pain, vomiting. Denies any pain at this time. Review of system: Constitutional: No Fever, No chills, No General weakness HEENT: No headaches. Cardiovascular: Denies chest pain, palpitations, PND, swelling of the legs. Respiratory: No Cough, hemoptysis or SOB GI: Denies Nausea/V/D, hematemesis, melena. : Denies Hematuria, Dysuria, Frequency Musculoskeletal: Infected foot. Denies any pain. Neuro: No focal weakness Psych: No anxiety or depression. Skin: No rashes, Itching, Hives Objective: Patient alert oriented to person time place. Patient in no distress. Vital signs: Blood pressure 151/80, respiration 18, pulse 86, temperature 96.5 HEENT: No gross abnormalities Neck: Supple no JVD Lungs: Clear to auscultation Heart: Regular rate and rhythm, no murmurs no gallops Abdomen: Soft non tender, no guarding. Extremities: No edema. Dressing placed on the left foot. Neurologic: Alert oriented 3, no focal weakness. Psychiatrist: Normal mood, normal judgment. Skin: No rashes Assessment: Diabetic foot ulcer Cellulitis of the left foot with outpatient treatment failure Uncontrolled diabetes mellitus type 2 with hyperglycemia Hypertension History of hypothyroidism History of hyperlipidemia Plan of care: 11/15/2019 Supportive care Reconcile medications IV antibiotics IV fluids Wound care Glycemic control Report wound culture Repeat labs as needed DVT Prophylaxis Report wound culture Consider ID consultation if not improving 11/16/2019 Patient is doing well in no distress. Consult ID and health program analyst. There is a concern about osteomyelitis, early gangrene. List of medication reviewed. 11/17/2019 Continue present care Antibiotics per ID 11/18/2019 Continue present care. Podiatry evaluation noted. Ulceration will be debrided tomorrow which is 11/19/2019. Follow-up culture sensitivity. Continue IV antibio tics local wound care. Bactroban followed by dilute wet-to-dry. Still present care. DVT prophylaxis. Presently on ceftriaxone 1 g IV every 24 hours. Arrange for PICC line. 11/19/2019 Continue present care. Discussed with ID. Continue antibiotics as advised. Local wound care. Managed Care Specialist recommendation noted. The patient grew strep viridans and still awaiting anaerobic culture and sensitivity. Under no anesthesia secondary to her neuropathy, Dr. Godfrey from podiatry performed sharp excisional debridement of the ulcer was carried down to bone. Devitalized tissue sharply excised until good viable bleeding tissue was achieved via the use of a sterile 10 blade. Following debridement of the ulcer measuring more than 1-1.5 cm in diameter. The bone was scraped utilizing a sterile 10 blade. As advised by Dr. Godfrey continue to treat conservatively.
[2019-11-19] MEDS: ATORVASTATIN 40 MG TAB PO SCH (20:28)
[2019-11-20] VITALS (8 sets, daily range): BP systolic 96–124; BP diastolic 65–78
[2019-11-20] MEDS: LEVOTHYROXINE SODIUM 75 MCG TAB PO SCH (05:01)
--- NOTE | 2019-11-20 07:03 | NUR ---
BEDSIDE SHIFT REPORT FROM BOOT TURNER RN. PT DENIES NEEDS AT THIS TIME.
[2019-11-20] MEDS: INSULIN LISPRO 100 UNIT/1 ML 3ML VIAL SQ SCH ×4 (07:30→21:00)
[2019-11-20] MEDS: MUPIROCIN 2% OINT 22 GM TUBE TOP SCH (08:00)
[2019-11-20] MEDS: ASPIRIN 81 MG CHEW TAB PO SCH (08:00)
[2019-11-20] MEDS: CLOPIDOGREL BISULFATE 75 MG TAB PO SCH (08:00)
[2019-11-20] MEDS: METFORMIN HCL 500 MG TAB CR PO SCH ×2 (08:00→17:06)
[2019-11-20] MEDS: CEFTRIAXONE SOD 2 GM/NS 100 ML 100 ML IV SCH (09:53)
--- NOTE | 2019-11-20 14:59 | Progress Note ---
DATE: 11/20/2019 SUBJECTIVE: Ms. Kelley is feeling better, had debridement recently. There are no new complaints. Her wound culture showing Streptococcus group B agalactiae with strep viridans. REVIEW OF SYSTEMS: Otherwise unremarkable. PHYSICAL EXAMINATION: GENERAL: She is currently alert, oriented, does not seem in acute distress. VITAL SIGNS: Stable. Currently afebrile. HEENT: Not icteric. NECK: Supple. CHEST: Clear. HEART: S1 and S2. No S3, S4, or murmur. ABDOMEN: Soft. Bowel sounds present. No tenderness. EXTREMITIES: No edema. MEDICATIONS: She is currently on Rocephin. IMPRESSION AND PLAN: Osteomyelitis, diabetes mellitus with neuropathy, gangrene of the foot, status post excisional debridement. The plan is to do four weeks of IV antibiotic at least not longer. Discharge planning once is cleared by Surgery. Discussed with Dr. Godfrey. We will follow. Please refer to my notes in the chart. MD GABRIELLE Polo/CHE /[id number]
--- NOTE | 2019-11-20 16:15 | Progress Note ---
DATE: 11/20/2019 SUBJECTIVE: The patient is seen at bedside, accompanied by nurse. The patient is doing somewhat better. Still having some discomfort to the left lower extremity, but decreased. OBJECTIVE: VITAL SIGNS: Afebrile, pulse rate 87, respiration 19, blood pressure 96/65, with an O2 saturation of 100%. LABORATORY DATA: Noted has a white blood cell count of 9.24. Ulceration to the 5th digit, left foot is getting better, still tracking to bone. Some less cyanosis noted to the distal aspect of the 5th toe, left foot. Pedal pulses are palpable, but diminished. ASSESSMENT: Osteomyelitis with grade 4 ulcer with pregangrenous changes noted to the left foot, responding slowly. PLAN: We will continue to treat conservatively with IV antibiotics and local wound care. We will keep her until Wednesday to let the toe demarcate before any definitive procedure is done. Hopefully, no amputation. We will continue to treat, offloading, dressing changed. Continue IV antibiotics. NARCISO Sanchez/CHE /[id number]
--- NOTE | 2019-11-20 17:04 | NUR ---
Nutrition Screen Note RD Recommendation for Physician: - Continue 1800 ADA diet - Recommend follow up DM education and management with outpatient CDE upon discharge Plan of Care: RD following, monitoring for tolerance and adequacy - Diet education provided 11/20/19 Nutrition reason for involvement: LOS Primary Diagnose(s): diabetic infection of L foot, cellulitis, osteomyelitis of the 5th toe, uncontrolled DM PMH: DM2, foot ulcer, HTN, hypothyroidism, HLD Ht: 66 in Wt: 253 lb BMI: 40.8 kg/m2 IBW: [address] Assessment: (11/19) 39 YOF admitted for diabetic infection of L foot. Pt seen today for LOS. 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 Pt denies any wt loss, reports UBW of 230#. Pt reports that she does not follow any diet restrictions at home, just tries to avoid regular soda. Pt receptive to diet education at time of visit. Pt educated on CHO sources, CHO counting, foods to avoid, meal planning, and label reading as well as BG management with medication and glucometer. Pt reports she takes insulin at home, however does not have a glucometer and does not check BG. Pt states she will f/u with her Electrical Timing Device Calibrator at discharge to obtain a glucometer and supplies. All questions and concerns addressed at time of visit. Chart reviewed. Labs and meds reviewed. Will continue to monitor. Current Diet: 1800 ADA Malnutrition Evaluation (11/20/19) The patient does not meet criteria for a specified degree of malnutrition at this time. Will re-evaluate at follow-up as appropriate. Diet Education Needs Assessment: Diet education indicated, pt receptive and education provided 11/19. Learner(s): pt Barriers: none Cultural/Language Modifications: none Readiness: ready Method: handouts, discussion Topics: DM2 nutrition therapy- CHO sources, CHO counting, meal planning, foods to avoid, food label reading Understanding/Compliance: Diet tolerance: tolerating po Nutrition Care Level: Low Signed: Dawn Emerson RD, LD, [facility]
[2019-11-20] MEDS: ENOXAPARIN SOD INJ 40 MG/0.4 ML SYR SC SCH (17:06)
--- NOTE | 2019-11-20 17:44 | NUR ---
Spoke with Dr. Varghese. States that he is setting up IV abx thru his office. He is ready to discharge pt once cleared by Dr. Godfrey.
[2019-11-20] MEDS: ATORVASTATIN 40 MG TAB PO SCH (20:38)
--- NOTE | 2019-11-20 23:15 | NUR ---
Subjective: The patient was doing fine examination the patient was in no distress. No fever chills no chest pain or shortness of breath. Objective:: Patient alert oriented person time place. Patient no distress. Vital signs: Blood pressure 10/13/1972, respiration 20, pulse 84, temperature 97.3 HEENT: No gross abnormalities Neck: Supple no JVD Lungs: Clear to auscultation Heart: Regular rate and rhythm, no murmurs no gallops Abdomen: Soft non tender, no guarding. Extremities: No edema Neurologic: Alert oriented 3, no focal weakness. Psychiatrist: Normal mood, normal judgment. Skin: No rashes Assessment: Diabetic foot ulcer Cellulitis of the left foot with outpatient treatment failure Uncontrolled diabetes mellitus type 2 with hyperglycemia Hypertension History of hypothyroidism History of hyperlipidemia Plan of care: 11/15/2019 Supportive care Reconcile medications IV antibiotics IV fluids Wound care Glycemic control Report wound culture Repeat labs as needed DVT Prophylaxis Report wound culture Consider ID consultation if not improving 11/16/2019 Patient is doing well in no distress. Consult ID and supervisor roving. There is a concern about osteomyelitis, early gangrene. List of medication reviewed. 11/17/2019 Continue present care Antibiotics per ID 11/18/2019 Continue present care. Podiatry evaluation noted. Ulceration will be debrided tomorrow which is 11/19/2019. Follow-up culture sensitivity. Continue IV antibio tics local wound care. Bactroban followed by dilute wet-to-dry. Still present care. DVT prophylaxis. Presently on ceftriaxone 1 g IV every 24 hours. Arrange for PICC line. 11/19/2019 Continue present care. Discussed with ID. Continue antibiotics as advised. Local wound care. Application Defense Manager recommendation noted. The patient grew strep viridans and still awaiting anaerobic culture and sensitivity. Under no anesthesia secondary to her neuropathy, Dr. Godfrey from podiatry performed sharp excisional debridement of the ulcer was carried down to bone. Devitalized tissue sharply excised until good viable bleeding tissue was achieved via the use of a sterile 10 blade. Following debridement of the ulcer measuring more than 1-1.5 cm in diameter. The bone was scraped utilizing a sterile 10 blade. As advised by Dr. Godfrey continue to treat conservatively. 11/20/2019 Application Defense Manager evaluation noted continue conservative treatment. Continue IV antibiotics and local wound care. Keep Plavix for 2 more days and per supervisor roving T toe demarcate before any definitive procedure. Offloading, dressing changes, continue IV antibiotics
[2019-11-21] VITALS (8 sets, daily range): BP systolic 121–163; BP diastolic 68–88
--- NOTE | 2019-11-21 03:27 | NUR ---
patient complaining of diarrhea, dr choe called orders for stool culture and cdiff.
[2019-11-21] MEDS: LEVOTHYROXINE SODIUM 75 MCG TAB PO SCH (06:00)
--- NOTE | 2019-11-21 07:00 | NUR ---
BEDSIDE SHIFT REPORT FROM ENROLLMENT ADVISOR RN. PT DENIES NEEDS AT THIS TIME.
[2019-11-21] MEDS: ASPIRIN 81 MG CHEW TAB PO SCH (08:20)
[2019-11-21] MEDS: METFORMIN HCL 500 MG TAB CR PO SCH ×2 (08:20→17:24)
[2019-11-21] MEDS: CLOPIDOGREL BISULFATE 75 MG TAB PO SCH (08:20)
[2019-11-21] MEDS: INSULIN LISPRO 100 UNIT/1 ML 3ML VIAL SQ SCH ×4 (08:21→21:00)
[2019-11-21] MEDS: MUPIROCIN 2% OINT 22 GM TUBE TOP SCH (08:21)
[2019-11-21] MEDS ORDERED: CHOLESTYRAMINE 4 GM PACKET PO PRN (10:00)
[2019-11-21] MEDS: CEFTRIAXONE SOD 2 GM/NS 100 ML 100 ML IV SCH (10:18)
--- NOTE | 2019-11-21 11:14 | Diagnostic Imaging Report ---
Exam: Left foot 3 views History: Pain Comparison: None. Findings: No fracture or malalignment. Soft tissue swelling. 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 Ossified body superior to the talonavicular joint. Dorsal and plantar calcaneal enthesophytes. Vascular calcifications. Impression: Soft tissue swelling without acute osseous abnormality Signed by: Dr. Andrew Bear M.D. on 11/21/2019 11:11 AM
--- NOTE | 2019-11-21 12:26 | Progress Note ---
DATE: 11/21/2019 SUBJECTIVE: The patient is seen at bedside, accompanied by mother, doing better. Denies any history of fever, chills, nausea, or vomiting. Decreased pain to the left lower extremity. OBJECTIVE: VITAL SIGNS: Afebrile, pulse rate 84, respirations 20, blood pressure 139/78, and O2 saturation 99%. EXTREMITIES: Still some cyanosis noted to the 5th digit, left foot, but getting better. Has a grade 3/4 ulceration, medial aspect 5th digit left foot, measuring more than 1.5 cm in diameter, tracking down to bone. Some drainage, but negative foul smell. Culture and sensitivity remarkable for strep group B, sensitive to penicillin. Pedal pulses are palpable, but diminished. Decreased swelling to the left lower extremity with decreased cyanosis to the 5th digit, left foot. LABORATORY DATA: Show white blood cell count of 9.2. ASSESSMENT: Grade 4 ulcer, possible osteo, 5th digit left with diabetic neuropathy. PLAN: We will continue local wound care with Bactroban followed by diluted wet-to-dry Betadine, which was changed on this date. Continue IV antibiotics. If the patient is looking better tomorrow, may be going home tomorrow. NARCISO Sanchez/CHE /[id number]
[2019-11-21] MEDS: VANCOMYCIN 250MG/5ML ORAL SOLN PO SCH ×2 (12:49→18:13)
[2019-11-21] MEDS: ENOXAPARIN SOD INJ 40 MG/0.4 ML SYR SC SCH (17:24)
[2019-11-21] MEDS: ATORVASTATIN 40 MG TAB PO SCH (20:39)
--- NOTE | 2019-11-21 23:40 | NUR ---
Subjective: The patient was doing fine examination the patient was in no distress. No fever chills no chest pain or shortness of breath. Objective:: Patient alert oriented person time place. Patient no distress. Vital signs: Stable afebrile HEENT: No gross abnormalities Neck: Supple no JVD Lungs: Clear to auscultation Heart: Regular rate and rhythm, no murmurs no gallops Abdomen: Soft non tender, no guarding. Extremities: No edema Neurologic: Alert oriented 3, no focal weakness. Psychiatrist: Normal mood, normal judgment. Skin: No rashes Assessment: Diabetic foot ulcer Cellulitis of the left foot with outpatient treatment failure Uncontrolled diabetes mellitus type 2 with hyperglycemia Hypertension History of hypothyroidism History of hyperlipidemia Plan of care: 11/15/2019 Supportive care Reconcile medications IV antibiotics IV fluids Wound care Glycemic control Report wound culture Repeat labs as needed DVT Prophylaxis Report wound culture Consider ID consultation if not improving 11/16/2019 Patient is doing well in no distress. Consult ID and nuclear fuels research engineer. There is a concern about osteomyelitis, early gangrene. List of medication reviewed. 11/17/2019 Continue present care Antibiotics per ID 11/18/2019 Continue present care. Podiatry evaluation noted. Ulceration will be debrided tomorrow which is 11/19/2019. Follow-up culture sensitivity. Continue IV antibio tics local wound care. Bactroban followed by dilute wet-to-dry. Still present care. DVT prophylaxis. Presently on ceftriaxone 1 g IV every 24 hours. Arrange for PICC line. 11/19/2019 Continue present care. Discussed with ID. Continue antibiotics as advised. Local wound care. Tax Services Specialist recommendation noted. The patient grew strep viridans and still awaiting anaerobic culture and sensitivity. Under no anesthesia secondary to her neuropathy, Dr. Godfrey from podiatry performed sharp excisional debridement of the ulcer was carried down to bone. Devitalized tissue sharply excised until good viable bleeding tissue was achieved via the use of a sterile 10 blade. Following debridement of the ulcer measuring more than 1-1.5 cm in diameter. The bone was scraped utilizing a sterile 10 blade. As advised by Dr. Godfrey continue to treat conservatively. 11/20/2019 Tax Services Specialist evaluation noted continue conservative treatment. Continue IV antibiotics and local wound care. Keep Plavix for 2 more days and per nuclear fuels research engineer T toe demarcate before any definitive procedure. Offloading, dressing changes, continue IV antibiotics 11/21/2019 Continue present care. Reevaluate in a.m. Podiatry evaluation noted.
[2019-11-22] VITALS: BP 151/87
[2019-11-22] MEDS: VANCOMYCIN 250MG/5ML ORAL SOLN PO SCH ×2 (00:11→05:58)
[2019-11-22] MEDS ORDERED: HYDROCODONE/APAP 10MG-325MG TAB PO PRN (00:15)
[2019-11-22 04:00] VITALS: BP 128/65
[2019-11-22] MEDS: LEVOTHYROXINE SODIUM 75 MCG TAB PO SCH (05:58)
--- NOTE | 2019-11-22 07:03 | NUR ---
BEDSIDE SHIFT REPORT RECEIVED FROM FIRE PREVENTION CHIEF RN, PT AWAKE, ALERT, SITTING UP IN BED. NO SIGNS OF DISTRESS. NO COMPLAINTS AT THIS TIME.
[2019-11-22 07:54] VITALS: BP 128/65
[2019-11-22] MEDS: INSULIN LISPRO 100 UNIT/1 ML 3ML VIAL SQ SCH (08:20)
[2019-11-22] MEDS: ASPIRIN 81 MG CHEW TAB PO SCH (09:42)
[2019-11-22] MEDS: MUPIROCIN 2% OINT 22 GM TUBE TOP SCH (09:42)
[2019-11-22] MEDS: CLOPIDOGREL BISULFATE 75 MG TAB PO SCH (09:42)
[2019-11-22] MEDS: CEFTRIAXONE SOD 2 GM/NS 100 ML 100 ML IV SCH (09:42)
[2019-11-22] MEDS: METFORMIN HCL 500 MG TAB CR PO SCH (09:42)
--- NOTE | 2019-11-22 11:37 | NUR ---
Pt's IV abx is set up at Dr. Varghese's office. Dr. Payne stated he will discharge pt today. Pt was instructed to go straight to Dr. Varghese's office from hospital for teaching and to warehouse picker medications. Pt has Dr. Varghese's business card at bedside with office information. [address] [place] [address]
[2019-11-22 11:55] VITALS: BP 148/89
--- NOTE | 2019-11-22 15:27 | Progress Note ---
DATE: 11/22/2019 SUBJECTIVE: The patient is seen at bedside, accompanied by mother, doing better. Denies any history of fever, chills, nausea, or vomiting. OBJECTIVE: VITAL SIGNS: Afebrile, pulse rate 89, respirations 18, blood pressure 128/65, O2 saturation 97%. EXTREMITIES: Ulceration to the 5th digit, left foot shows some granulation tissue, still down to bone measuring 1.5 cm in diameter, medial aspect, 5th digit, left foot. Pedal pulses are palpable. Still positive swelling to the left lower extremity, but is subsiding. ASSESSMENT: Grade 4 ulcer, osteomyelitis 5th toe, left foot. PLAN: Okay to be discharged today if okay with Dr. Payne. The patient will be put on oral doxycycline 100 mg to be taken b.i.d. who is to follow up on Wednesday in the office. NARCISO Sanchez/CHE /[id number]
== END 2019-11-22 12:42 | disposition home or self-care (01) | DRG 264 ==
LOC: ER 09:39 → ERHOLD 12:24 → MED/SURG2 15:29
PROVIDERS: ADMIT Internal Medicine; ATTEND Internal Medicine
PROC: 02HV33Z Insertion of Infusion Device into Superior Vena Cava, Percutaneous Approach (ICD-10-PCS; 2019-11-18)
PROC: 0JBR0ZZ Excision of Left Foot Subcutaneous Tissue and Fascia, Open Approach (ICD-10-PCS; principal; 2019-11-19)
PROC: 0QDP0ZZ Extraction of Left Metatarsal, Open Approach (ICD-10-PCS; 2019-11-19)
DX: E11.52 Type 2 diabetes mellitus with diabetic peripheral angiopathy with gangrene (principal); Z68.41 Body mass index [BMI] 40.0-44.9, adult; M86.8X7 Other osteomyelitis, ankle and foot; E11.69 Type 2 diabetes mellitus with other specified complication; E11.42 Type 2 diabetes mellitus with diabetic polyneuropathy; L03.032 Cellulitis of left toe; E66.9 Obesity, unspecified; E11.65 Type 2 diabetes mellitus with hyperglycemia; E11.621 Type 2 diabetes mellitus with foot ulcer; E78.5 Hyperlipidemia, unspecified; M77.8 Other enthesopathies, not elsewhere classified
CPT/HCPCS: 36415; 36569; 80053; 80061; 80202; 82948; 83036; 83605; 83735; 84100; 85025; 85651; 86140; 87045; 87071; 87075; 87205; 87493; 96372; 99284; J0696; J1650; J2543; J3370; J7030; J7050